=== PATIENT | female | born 2000 | race Caucasian/White ===

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

== ENCOUNTER 2022-07-26 15:21 | Outpatient (CLI) | payer BC, SELFPAY ==
[2022-07-26 16:27] LABS: Hemoglobin A1C 4.9 % (<5.7)
[2022-07-26 17:39] LABS: Free T4 Free Thyroxine 1.17 ng/mL (0.78-2.19)
== END 2022-07-26 15:22 | disposition home or self-care (01) ==
PROVIDERS: Visit Provider Obstetrics & Gynecology Gynecology
DX: Z13.29 Encounter for screening for other suspected endocrine disorder (principal); Z13.1 Encounter for screening for diabetes mellitus
CPT/HCPCS: 36415; 83036; 84439; 84443

== ENCOUNTER 2022-08-24 10:54 | Outpatient (CLI) | payer BC, SELFPAY ==
[2022-08-24 19:32] LABS: Hematocrit 40.2 % (37.0-47.0); Hemoglobin 13.4 g/dL (12.0-15.0); Mean Corpuscular HGB Conc 33.3 g/dl (32-36); Mean Corpuscular Hemoglobin 30.5 pg (26-34); Mean Corpuscular Volume 91.4 fl (80-100); Mean Platelet Volume 11.2 fl (7.4-10.4); Platelet Count Result 315 k/mm3 (150-375); Red Cell Distribution Width 12.9 % (11.5-14.5); White Blood Count 6.6 K/mm3 (4.5-10.0)
[2022-08-24 20:27] LABS: Vitamin D 25 Hydroxy 43.6 ng/mL
[2022-08-24 20:29] LABS: Alanine Aminotransferase 59 U/L (6-35); Albumin Level 4.3 g/dL (3.5-5.1); Alkaline Phosphatase 88 U/L (38-126); Anion Gap 4 mmol/L (8-16); Aspartate Amino Transferase 66 U/L (14-36); Bilirubin,Total 0.5 mg/dL (0.2-1.3); Blood Urea Nitrogen 10 mg/dL (7-17); Calcium 9.4 mg/dL (8.4-10.2); Carbon Dioxide 26 mmol/L (22-30); Chloride 105 mmol/L (98-107); Cholesterol 183 mg/dL (0-200); Estimated Glomerular Filt Rate > 60; Glucose 76 mg/dL (65-110); HDL Direct 47 mg/dL; Potassium 4.4 mmol/L (3.4-5.0); Sodium 135 mmol/L (137-145); Triglycerides 182 mg/dL (<150)
[2022-08-24 20:42] LABS: LDL Cholesterol Direct 95 mg/dL
== END 2022-08-24 10:55 | disposition home or self-care (01) ==
LOC: ANHGOSHLAB 10:55
PROVIDERS: Visit Provider Nurse Practitioner
DX: Z13.6 Encounter for screening for cardiovascular disorders (principal); N12 Tubulo-interstitial nephritis, not specified as acute or chronic; Z13.220 Encounter for screening for lipoid disorders; E55.9 Vitamin D deficiency, unspecified
CPT/HCPCS: 36415; 80053; 80061; 82306; 85027

== ENCOUNTER 2022-09-12 14:53 | Emergency (ER) | payer BC, SELFPAY ==
[2022-09-12 15:13] VITALS: BP 126/77; PULSE 81; RESP 16; TEMP 37.2; O2SAT 100
--- NOTE | 2022-09-12 15:17 | PC.NURSE ---
Spoke with provider regarding patient symptoms and Dr Rueda states no orders necessary for patient at this time.
--- NOTE | 2022-09-12 16:16 | PC.NURSE ---
Patient states she feels better and does not wish to be seen anymore. Patient ambulated out of ED with a steady gait. Patient states she is going to call her PCP. Patient advised to return to ED if symptoms worsen or return.
== END 2022-09-12 16:17 | disposition left against medical advice (07) ==
DX: R51.9 Headache, unspecified (principal)
CPT/HCPCS: 99199

== ENCOUNTER 2022-09-14 11:16 | Emergency (ER) | payer BC, SELFPAY ==
--- NOTE | ~2022-09-14 | CT_ITS ---
EXAMINATION: CT brain wo con INDICATION: Headache and blurred vision COMPARISON: None TECHNIQUE: Standard unenhanced head CT. The dose-length product (DLP) was 529.67 mGy-cm. The mA was a djusted according to patient size. Iterative reconstruction technique was employed. FINDINGS: There is no intracranial hemorrhage, acute infarction, or abnormal mass lesion. The ventric les are normal. There is no abnormal mass effect or midline shift. The hardin-white matter differentiat ion is normal. The basal cisterns are patent. The orbits are normal. The paranasal sinuses, mastoids and calvarium are normal. IMPRESSION: 1. No acute intracranial abnormality. Reviewed, dictated and finalized at location B.
[2022-09-14 11:23] VITALS: BP 118/70; PULSE 87; RESP 18; TEMP 36.7; O2SAT 100
--- NOTE | 2022-09-14 11:37 | ED.GENADULT ---
HPI - General Adult General Chief complaint: Unspecified Stated complaint: neuro complaints since monday, LWBS monday Time Seen by Provider: 09/14/22 11:27 History of Present Illness HPI narrative: Pt complains of tingling in arms, blurred vision and intermittent BLANTON's behind right eye for 3 days. Pt says the BLANTON's are precipitated by standing up quickly and the blurred vision is associated with the BLANTON's. Pt denies one sided weakness or photophobia. Pt has no BLANTON now. Pt says it may be anxiety and panic as her grandmother recently and the was 3 days ago ad the symptoms started afterward. Related Data Home Medications Medication Instructions Recorded Confirmed escitalopram oxalate 20 mg tablet 20 mg PO DAILY 08/24/22 08/24/22 (Lexapro) Allergies Allergy/AdvReac Type Severity Reaction Status Date / Time No Known Allergies Allergy Verified 08/24/22 10:16 Review of Systems Review of Systems: All systems reviewed & are unremarkable except as noted in HPI and below PMFSH Past Medical History Medical History False labor Pyelonephritis Surgical History Surgical History No pertinent past surgical history Family History Family History (Updated 08/24/22 @ 10:24 by RODERICK Townsend) Mother Hx of blood clots Hypertension Grandparent Pancreatic cancer Diabetes mellitus Grandparent Breast cancer Sibling Hypothyroid Other Diabetes mellitus Social History Social History Smoking status: Never smoker Second hand tobacco smoke exposure: Yes Additional smoking assessment comments: parents smoked in the home as a child/teen Alcohol intake: never Substance use: never Lack of Transportation: No Lack of Food: Never True Current Housing: I Have Housing Concerned About Future Housing: No Difficulty Paying Gas/Electric Bills: No Difficulty Paying for Meds: No Currently Unemployed: No Education: High School Diploma/GED Difficulty w/ Childcare or Family Care: No Living arrangements: with family Occupation/Education: other Additional occupation/education comments: HM Gender identity (if verbalized by the patient): Female Sexual Orientation (if Verbalized by the Patient): Straight or Heterosexual Spiritual care concerns: No Exam Const: General: cooperative, healthy appearing and no acute distress Orientation/consciousness: patient oriented x3 Limitations: no limitations HENMT: Head: normal to inspection Eyes: General: appearance normal, both eyes and all related structures Alignment and Position: alignment normal Conjunctivae: conjunctivae normal Sclera: sclerae normal Cornea: corneas normal Pupils: Equal, round and reactive pupils present EOM: EOMs intact bilaterally Neck: Neck: normal visual inspection and full ROM Chest: Chest palpation & inspection: normal inspection of the chest Resp: Effort & Inspection: normal respiratory effort Auscultation: clear to auscultation bilaterally Cardio: Rate: regular rate Rhythm: regular rhythm GI: Percussion: Yes normal to percussion Auscultation: normal bowel sounds Skin: General skin exam: normal color and no rashes or lesions noted Neuro: General: patient oriented x3 and moves all extremities Cranial nerves: Yes CN's II-XII intact bilaterally Cognition (Neuro): normal cognition Speech: normal speech Motor exam (neuro): 5/5 motor strength present throughout Sensory Exam: normal sensation Extrem: General: normal to inspection, full ROM and no clubbing, cyanosis or edema Psych: Appearance: grossly normal Speech and movement: Normal speech and movement present Affect: normal affect Attitude: cooperative Thought process: Normal thought process present Thought content: Yes Normal thought content present Course Vital Signs Vit
[2022-09-14 13:01] VITALS: RESP 16
== END 2022-09-14 13:02 | disposition home or self-care (01) ==
PROVIDERS: Emergency Provider Emergency Medicine; PCP Family Medicine
DX: G43.109 Migraine with aura, not intractable, without status migrainosus (principal); F41.9 Anxiety disorder, unspecified; Z77.22 Contact with and (suspected) exposure to environmental tobacco smoke (acute) (chronic)
CPT/HCPCS: 70450; 81025; 99284

== ENCOUNTER 2023-01-20 09:03 | Outpatient (CLI) | payer BC, SELFPAY ==
[2023-01-20 18:31] LABS: Alanine Aminotransferase 30 U/L (6-35); Albumin Level 4.5 g/dL (3.5-5.1); Alkaline Phosphatase 106 U/L (38-126); Anion Gap 6 mmol/L (8-16); Aspartate Amino Transferase 33 U/L (14-36); Bilirubin,Total 0.6 mg/dL (0.2-1.3); Blood Urea Nitrogen 11 mg/dL (7-17); Calcium 9.5 mg/dL (8.4-10.2); Carbon Dioxide 25 mmol/L (22-30); Chloride 103 mmol/L (98-107); Estimated Glomerular Filt Rate > 60; Glucose 86 mg/dL (65-110); Sodium 134 mmol/L (137-145)
[2023-01-20 18:51] LABS: Beta HCG Quantitative < 2.39 mIU/ML
[2023-01-24 11:04] LABS: DHEA-Sulfate 159 mcg/dL (51-321)
[2023-01-25 10:31] LABS: Testosterone Total 28 ng/dL (2-45)
[2023-01-26 05:43] LABS: Prolactin 9.9 ng/mL (***)
== END 2023-01-20 09:04 | disposition home or self-care (01) ==
LOC: ANHGOSHLAB 09:05
PROVIDERS: PCP Family Medicine; Referring Provider Obstetrics & Gynecology Gynecology; Visit Provider Family Medicine
DX: R63.5 Abnormal weight gain (principal); R74.8 Abnormal levels of other serum enzymes; N91.2 Amenorrhea, unspecified
CPT/HCPCS: 36415; 80053; 82627; 83036; 83498; 83525; 84144; 84146; 84403; 84443; 84702

== ENCOUNTER 2023-04-24 10:12 | Outpatient (CLI) | payer OTHER, SELFPAY ==
--- NOTE | ~2023-04-24 | US_ITS ---
Pelvic ultrasound. Clinical History: Pelvic pain, irregular menses Technique: Realtime transabdominal and transvaginal scanning of the pelvis was performed. Color flow Doppler and Doppler spectral analysis were performed. Findings: The uterus is retroverted. The endometrial stripe has a thickness of 4 mm. No focal myomet rial mass is identified. The right ovary measures 3.1 x 2.6 x 3.4 cm. No significant right ovarian or adnexal mass is seen. The left ovary measures 2.5 x 2.4 x 2.0 cm. No significant left ovarian or adnexal mass is seen. There is no evidence of free fluid in the cul de sac. Impression: No significant abnormality seen. Reviewed, dictated and finalized at [facility]. [employer] Impression: No significant abnormality seen.
== END 2023-04-24 10:13 ==
PROVIDERS: PCP Nurse Practitioner; Visit Provider Nurse Practitioner
DX: N93.8 Other specified abnormal uterine and vaginal bleeding (principal)
CPT/HCPCS: 76830; 76856

== ENCOUNTER 2023-05-09 11:00 | Outpatient (CLI) | payer OTHER, SELFPAY ==
[2023-05-09 11:52] LABS: Hematocrit 43.6 % (37.0-47.0); Mean Corpuscular HGB Conc 32.1 g/dl (32-36); Mean Corpuscular Volume 96.7 fl (80-100); Mean Platelet Volume 11.5 fl (7.4-10.4); Platelet Count Result 289 k/mm3 (150-375); Red Blood Count 4.51 M/mm3 (4.2-5.4); Red Cell Distribution Width 12.7 % (11.5-14.5); White Blood Count 6.5 K/mm3 (4.5-10.0)
[2023-05-09 14:07] LABS: Free T4 Free Thyroxine 1.13 ng/mL (0.78-2.19)
== END 2023-05-09 11:01 | disposition home or self-care (01) ==
PROVIDERS: PCP Nurse Practitioner; Visit Provider Nurse Practitioner
DX: N93.8 Other specified abnormal uterine and vaginal bleeding (principal)
CPT/HCPCS: 36415; 84439; 84443; 85027

== ENCOUNTER 2023-09-15 13:58 | Emergency (ER) | payer OTHER, SELFPAY ==
[2023-09-15 14:07] VITALS: BP 104/78; PULSE 89; RESP 16; TEMP 36.6; O2SAT 100
--- NOTE | 2023-09-15 14:07 | ED.GENADULT ---
HPI - General Adult General Chief complaint: Urogenital-Female Stated complaint: Uti Symptoms Source: patient, RN notes reviewed and old records reviewed Mode of arrival: ambulatory Limitations: no limitations History of Present Illness HPI narrative: 23-year-old female to [facility] complaint urinary urgency, hesitancy, retention, dysuria, and frequency for 2 days. Patient denies abdominal pain, nausea, vomiting, flank pain. Patient denies pertinent medical history. Related Data Home Medications Medication Instructions Recorded Confirmed escitalopram oxalate 20 mg tablet 20 mg PO DAILY 08/24/22 09/15/23 (Lexapro) Allergies Allergy/AdvReac Type Severity Reaction Status Date / Time No Known Allergies Allergy Verified 09/15/23 14:05 Review of Systems Review of Systems: All systems reviewed & are unremarkable except as noted in HPI and below Constitutional: Constitutional: Reports as per HPI, Denies body ache(s), Denies chills and Denies fever(s) Eyes: Eyes: Reports no additional eye complaints ENT: Reports system reviewed and no additional complaints, except as documented Cardiovascular: Cardiovascular: Reports no additional cardiovascular complaints, Denies chest pain and Denies dyspnea Respiratory: Respiratory: Reports no additional respiratory complaints, Denies cough and Denies dyspnea Gastrointestinal: Gastrointestinal: Denies abdominal pain Genitourinary: Genitourinary: Reports as per HPI, Reports urinary frequency, Reports nocturia, Reports dysuria, Denies pelvic pain, Denies flank pain, Reports urinary hesitancy and Reports urinary urgency Musculoskeletal: Musculoskeletal: Reports no additional musculoskeletal complaints Neurologic: Reports system reviewed and no additional complaints, except as documented Psychiatric: Psychiatric: Reports no additional psychiatric complaints [facility] Past Medical History Medical History False labor Pyelonephritis Surgical History Surgical History No pertinent past surgical history Family History Family History Mother Hx of blood clots Hypertension Grandparent Pancreatic cancer Diabetes mellitus Grandparent Breast cancer Sibling Hypothyroid Other Diabetes mellitus Social History Social History Smoking status: Never smoker Second hand tobacco smoke exposure: Yes Additional smoking assessment comments: parents smoked in the home as a child/teen Alcohol intake: never Substance use: never Lack of Transportation: No Lack of Food: Never True Current Housing: I Have Housing Concerned About Future Housing: No Difficulty Paying Gas/Electric Bills: No Difficulty Paying for Meds: No Currently Unemployed: No Education: High School Diploma/GED Difficulty w/ Childcare or Family Care: No Living arrangements: with family Occupation/Education: other Additional occupation/education comments: HM Gender identity (if verbalized by the patient): Female Sexual Orientation (if Verbalized by the Patient): Straight or Heterosexual Spiritual care concerns: No Comments At the time of my signature, I reviewed and agree with the nursing past medical, surgical, social, and family history. There is no relevant family history pertinent to the patient complaint. Exam Const: General: cooperative, healthy appearing, no acute distress, alert, tired appearing, uncomfortable and well nourished Nutritional Appearance: well nourished Orientation/consciousness: patient oriented x3 Limitations: no limitations HENMT: Head: normal to inspection Ears: external ears normal Face/Nose/Sinus: Normal external nose present, Normal nares present, normal facial exam, No erythema and No edema Face and sinu
== END 2023-09-15 14:28 | disposition home or self-care (01) ==
PROVIDERS: Emergency Provider Nurse Practitioner Family; PCP Family Medicine
DX: N39.0 Urinary tract infection, site not specified (principal); B96.89 Other specified bacterial agents as the cause of diseases classified elsewhere
CPT/HCPCS: 81003; 87077; 87086; 87186; 99213; G0463

== ENCOUNTER 2023-10-24 14:29 | Outpatient (CLI) | payer OTHER, SELFPAY ==
[2023-10-24 19:33] LABS: Appearance Urine Clear (Clear); Bilirubin Urine Negative (Negative); Blood Urine Negative (Negative); Color Urine Yellow (Yellow); Glucose Urine UA Negative (Negative); Ketones Urine Negative (Negative); Leukocyte Esterase Ur Negative LEU/UL (Negative); Nitrate Urine Negative (Negative); Protein Urine Negative (Negative); Urobilinogen Urine 0.2 mg/dL (<2.0); pH Urine 5.5 (5.0-9.0)
[2023-10-24 19:39] LABS: Add Urine Microscopic? NO
== END 2023-10-24 14:30 | disposition home or self-care (01) ==
LOC: ANHGOSHLAB 14:30
PROVIDERS: PCP Family Medicine; Visit Provider Nurse Practitioner
DX: R30.0 Dysuria (principal)
CPT/HCPCS: 81003

== ENCOUNTER 2024-02-27 10:57 | Outpatient (CLI) | payer OTHER, SELFPAY ==
--- NOTE | ~2024-02-27 | XR_ITS ---
XR abdomen/kub 1V Ordering provider: MALLIKA Templeton History: . R19.7 - Diarrhea . Comparison: None. FINDINGS: BOWEL: Nonobstructive bowel gas pattern. ORGANOMEGALY: None. SIGNIFICANT PATHOLOGIC CALCIFICATIONS: None. OTHER: No free air is seen under the diaphragm. IMPRESSION: NO ACUTE ABDOMINAL FINDINGS. Reviewed, dictated and finalized at location A.
[2024-02-27 11:44] LABS: Hematocrit 41.4 % (37.0-47.0); Hemoglobin 13.5 g/dL (12.0-15.0); Mean Corpuscular HGB Conc 32.6 g/dl (32-36); Mean Corpuscular Hemoglobin 31.3 pg (26-34); Mean Corpuscular Volume 95.8 fl (80-100); Mean Platelet Volume 10.9 fl (7.4-10.4); Platelet Count Result 287 k/mm3 (150-375); Red Blood Count 4.32 M/mm3 (4.2-5.4); Red Cell Distribution Width 12.6 % (11.5-14.5); White Blood Count 8.6 K/mm3 (4.5-10.0)
[2024-02-27 12:07] LABS: Alanine Aminotransferase 21 U/L (6-35); Albumin Level 4.5 g/dL (3.5-5.1); Alkaline Phosphatase 76 U/L (38-126); Anion Gap 10 mmol/L (4-12); Aspartate Amino Transferase 28 U/L (14-36); Bilirubin,Total 0.5 mg/dL (0.2-1.3); Blood Urea Nitrogen 10 mg/dL (7-17); Calcium 9.2 mg/dL (8.4-10.2); Carbon Dioxide 26 mmol/L (22-30); Chloride 101 mmol/L (98-107); Estimated Glomerular Filt Rate > 60; Glucose 82 mg/dL (65-110); Potassium 4.2 mmol/L (3.4-5.0); Sodium 137 mmol/L (137-145)
[2024-02-27 12:31] LABS: Thyroid Stimulating Hormone 0.626 uIU/mL (0.465-4.680)
[2024-03-02 07:09] LABS: Immunoglobulin A 185 mg/dL (47-310); TTG IGA AB <1.0 U/mL
== END 2024-02-27 10:58 | disposition home or self-care (01) ==
PROVIDERS: PCP Family Medicine; Visit Provider Nurse Practitioner Family
DX: R19.7 Diarrhea, unspecified (principal); R10.9 Unspecified abdominal pain
CPT/HCPCS: 36415; 74018; 80053; 82784; 84443; 85027; 86364

== ENCOUNTER 2024-03-08 13:16 | Emergency (ER) | payer OTHER, SELFPAY ==
[2024-03-08 13:19] VITALS: BP 133/79; PULSE 98; RESP 16; TEMP 36.4; O2SAT 100
--- NOTE | 2024-03-08 15:36 | PC.NURSE ---
Pt states she feels better and is going home. States will return if symptoms worsen. Pt exits ED in NAD
== END 2024-03-08 15:56 | disposition left against medical advice (07) ==
PROVIDERS: PCP Family Medicine
DX: Z53.21 Procedure and treatment not carried out due to patient leaving prior to being seen by health care provider (principal)
CPT/HCPCS: 99199

== ENCOUNTER 2024-03-19 06:32 | Emergency (ER) | payer OTHER, SELFPAY ==
--- NOTE | ~2024-03-19 | CT_ITS ---
Non-contrast CT scan of the Abdomen and Pelvis Clinical indication: Right flank pain Technique: 2.5 mm axial scans were obtained through the abdomen and pelvis without intravenous or or al contrast. Dose reduction technique was used on this scan by utilizing automated exposure control a nd iterative reconstruction technique. The dose-length product (DLP) was 416.33 mGy-cm. COMPARISON: 09/13/2021 Findings: Images through the lung bases reveal no abnormalities. There is a 2-3 mm stone at the proximal right ureter (axial image 99), with questionable minimal full ness the right renal collecting system. Additional punctate nonobstructing right renal stone. Noted 4 mm nonobstructing left renal stone. No left ureteral stone or left hydronephrosis. The liver, spleen, pancreas, gallbladder, and adrenals appear normal. There is no aortic aneurysm. There is no evidence of bowel obstruction. Small fat-containing umbilical hernia noted. Normal append ix. Images through the pelvis were performed. There is no evidence of ascites or lymphadenopathy. Urinary bladder unremarkable. No pelvic mass seen. Impression: 2-3 mm proximal right ureteral stone with questionable minimal fullness right renal collecting system . Additional small bilateral nonobstructing renal stones, as above. Reviewed, dictated and finalized at location . Impression: 2-3 mm proximal right ureteral stone with questionable minimal fullness right r enal collecting system. Additional small bilateral nonobstructing renal stones, as above.
[2024-03-19 06:16] VITALS: BP 152/90; PULSE 88; RESP 15; O2SAT 100
[2024-03-19 06:31] LABS: BEDSIDEPREGUCG Negative (Negative)
[2024-03-19 06:40] LABS: Basophils Absolute Auto 0.1 K/mm3 (0.0-0.1); Basophils Percent Auto 0.8 % (0.2-1.2); Eosinophils Absolute Auto 0.2 K/mm3 (0-0.3); Eosinophils Percent Auto 2.5 % (0-4.4); Hematocrit 42.4 % (37.0-47.0); Hemoglobin 14.3 g/dL (12.0-15.0); Immature Granulocyte Absolute 0.04 K/mm3 (0.00-0.031); Immature Granulocyte Percent A 0.5 % (0-0.5); Lymphocytes Absolute Auto 3.07 K/mm3 (0.9-3.2); Lymphocytes Percent Auto 36.6 % (18.3-44.2); Mean Corpuscular HGB Conc 33.7 g/dl (32-36); Mean Corpuscular Hemoglobin 32.1 pg (26-34); Mean Corpuscular Volume 95.1 fl (80-100); Monocytes Absolute Auto 0.6 K/mm3 (0.1-0.6); Monocytes Percent Auto 7.6 % (2.6-8.5); Neutrophils Absolute Auto 4.4 K/mm3 (1.3-6.7); Platelet Count Result 304 k/mm3 (150-375); Red Blood Count 4.46 M/mm3 (4.2-5.4); Red Cell Distribution Width 12.6 % (11.5-14.5); White Blood Count 8.4 K/mm3 (4.5-10.0)
[2024-03-19 06:46] LABS: Add Urine Microscopic? YES; Appearance Urine Cloudy (Clear); Bacteria Urine 1+ /hpf; Bilirubin Urine Negative (Negative); Blood Urine 3+ (Negative); Color Urine Yellow (Yellow); Glucose Urine UA Negative (Negative); Ketones Urine Negative (Negative); Leukocyte Esterase Ur Negative LEU/UL (Negative); Nitrate Urine Negative (Negative); Non Pathogenic Casts 0-2; Protein Urine Negative (Negative); RBC Urine >100 /hpf (0-2); Specific Grav Ur 1.027 (1.001-1.035); Squamous Epithelial Cell Urine Occasional /hpf (Few); Urobilinogen Urine 0.2 mg/dL (<2.0); WBC Urine 0-5 /hpf (0-3)
[2024-03-19 06:49] LABS: Alanine Aminotransferase 20 U/L (6-35); Albumin Level 4.5 g/dL (3.5-5.1); Alkaline Phosphatase 85 U/L (38-126); Anion Gap 8 mmol/L (4-12); Aspartate Amino Transferase 25 U/L (14-36); Bilirubin,Total 0.5 mg/dL (0.2-1.3); Blood Urea Nitrogen 9 mg/dL (7-17); Calcium 9.5 mg/dL (8.4-10.2); Carbon Dioxide 25 mmol/L (22-30); Chloride 104 mmol/L (98-107); Estimated CRCL calculation 149 ml/min; Estimated Glomerular Filt Rate > 60; Glucose 101 mg/dL (65-110); Lipase 41 U/L (23-300); Potassium 3.9 mmol/L (3.4-5.0); Sodium 137 mmol/L (137-145)
[2024-03-19 07:30] VITALS: BP 119/72; PULSE 77; RESP 18; O2SAT 99
[2024-03-19] MEDS: SODIUM CHLORIDE 0.9% IV 500 ML 999 ML IV CONT (07:34)
[2024-03-19] MEDS: ONDANSETRON INJ 4 MG/2 ML VIAL IV PUSH (07:34)
[2024-03-19] MEDS: HYDROmorphone HCL INJ (*CRX) 1 MG/ML SYR 0.5 MG IV PUSH (07:34)
--- NOTE | 2024-03-19 08:02 | ED.ABDPAIN ---
HPI - Abdominal Pain General Chief Complaint: Abdominal Pain Stated Complaint: right flank pain Time Seen by Provider: 03/19/24 07:17 History of Present Illness HPI narrative: Pt presents with right flank pain this morning. Pt has a history of kidney stones and his feels similar. Pt has been able to pass them on her own and has not followed up with urology. Pt denies dysuria or frequency or fever or chills. Pt has some nausea with pain. Pt says pain waxes and wanes and radiates to right groin. Related Data Home Medications Medication Instructions Recorded Confirmed escitalopram oxalate 20 mg tablet 20 mg PO DAILY 08/24/22 03/05/24 (Lexapro) Allergies Allergy/AdvReac Type Severity Reaction Status Date / Time No Known Allergies Allergy Verified 03/05/24 11:40 Review of Systems Review of Systems: All systems reviewed & are unremarkable except as noted in HPI and below PMFSH Past Medical History Medical History Abdominal pain False labor Pyelonephritis Surgical History Surgical History No pertinent past surgical history Family History Family History Mother Hx of blood clots Hypertension Grandparent Pancreatic cancer Diabetes mellitus Grandparent Breast cancer Sibling Hypothyroid Other Diabetes mellitus Social History Social History Smoking status: Never smoker Second hand tobacco smoke exposure: Yes Additional smoking assessment comments: parents smoked in the home as a child/teen Alcohol intake: never Substance use: never Lack of Transportation: No Lack of Food: Never True Current Housing: I Have Housing Concerned About Future Housing: No Difficulty Paying Gas/Electric Bills: No Difficulty Paying for Meds: No Currently Unemployed: No Education: High School Diploma/GED Difficulty w/ Childcare or Family Care: No Living arrangements: with family Occupation/Education: other Additional occupation/education comments: HM Gender identity (if verbalized by the patient): Female Sexual Orientation (if Verbalized by the Patient): Straight or Heterosexual Spiritual care concerns: No Exam Const: General: healthy appearing and no acute distress Nutritional Appearance: well nourished Orientation/consciousness: patient oriented x3 Resp: Effort & Inspection: normal respiratory effort Auscultation: clear to auscultation bilaterally Cardio: Rate: regular rate Rhythm: regular rhythm GI: GI Palp: Yes Soft to palpation and No Tenderness to palpation present (GI) Auscultation: normal bowel sounds : General: Yes bladder normal to palpation Back/Spine/Pelvis: Back: CVA tenderness (right) Skin: General skin exam: normal color Rashes: no rashes Wounds: no wounds Neuro: General: patient oriented x3, moves all extremities, no meningeal signs and no focal motor deficits Cranial nerves: Yes Nystagmus not present Speech: normal speech Extrem: General: normal to inspection and no clubbing, cyanosis or edema Psych: Mental Status: mental status grossly normal Affect: normal affect Attitude: cooperative Course Vital Signs Vital signs: Vital Signs Pulse Rate 88 03/19/24 06:16 Respiratory Rate 15 03/19/24 06:16 Blood Pressure 152/90 H 03/19/24 06:16 Pulse Oximetry 100 03/19/24 06:16 Oxygen Delivery Room Air 03/19/24 06:16 Temperature 97.7 F 03/19/24 08:16 Pulse Rate 85 03/19/24 08:16 Respiratory Rate 16 03/19/24 08:16 Blood Pressure 107/69 03/19/24 08:16 Pulse Oximetry 99 03/19/24 08:16 Oxygen Delivery Room Air 03/19/24 06:16 MDM - Abdominal Pain MDM Narrative Medical decision making narrative: Pt presents with right flank pain radiating to right groin. pt has hx of kidney stones and this
[2024-03-19 08:16] VITALS: BP 107/69; PULSE 85; RESP 16; TEMP 36.5; O2SAT 99
== END 2024-03-19 08:20 | disposition home or self-care (01) ==
PROVIDERS: Emergency Medicine; Emergency Provider Emergency Medicine; PCP Family Medicine
DX: N20.0 Calculus of kidney (principal)
CPT/HCPCS: 36415; 74176; 80053; 81001; 81025; 83690; 85025; 96361; 96374; 96375; 99284; J1171; J2405; J7040

== ENCOUNTER 2024-03-20 06:09 | Emergency (ER) | payer OTHER, SELFPAY ==
[2024-03-20] VITALS (8 sets, daily range): BP systolic 112–134; BP diastolic 74–86; PULSE 68–94; RESP 12–23; TEMP 36.4–36.7; O2SAT 95–100
--- NOTE | ~2024-03-20 | XR_ITS ---
EXAMINATION: XR abdomen/kub 1V DATE: 03/20/2024 08:33 INDICATION: Right ureteral stone. TECHNIQUE: A supine view of the abdomen on 2 radiographs was obtained. COMPARISON: CT abdomen and pelvis 03/19/2024 FINDINGS: There are no dilated loops of bowel. There is no visible urolithiasis. IMPRESSION: 1. No visible urolithiasis. Reviewed, dictated and finalized at location A. IMPRESSION: 1. No visible urolithiasis.
--- NOTE | 2024-03-20 06:23 | ED.GENADULT ---
HPI - General Adult General Chief complaint: Urogenital-Female <Curry Canales MD - Last Filed: 03/20/24 19:41> Stated complaint: abd pain <uCrry Canales MD - Last Filed: 03/20/24 19:41> Time Seen by Provider: 03/20/24 06:17 <Curry Canales MD - Last Filed: 03/20/24 19:41> History of Present Illness HPI narrative: 24-year-old female history of kidney stones presents emergency department for evaluation for persistent kidney stone pain. Patient was evaluated emergency department yesterday and diagnosed with a 2-3 mm proximal right ureteral stone with questionable minimal fullness right renal collecting system. Patient was feeling better after treatment in the emergency department but began having worsening pain after getting home. Patient states she has been having nausea and vomiting. Upon arrival emergency department patient does appear to be uncomfortable. Patient states so she has had previous kidney stones that she has not had any previous lithotripsies or urinary procedures. <Curry Canales MD - Last Filed: 03/20/24 19:41> Related Data Home medications: Home Medications Medication Instructions Recorded Confirmed escitalopram oxalate 20 mg tablet 20 mg PO DAILY 08/24/22 03/05/24 (Lexapro) <Curry Canales MD - Last Filed: 03/20/24 19:41> Allergies/adverse reactions: Allergies Allergy/AdvReac Type Severity Reaction Status Date / Time No Known Allergies Allergy Verified 03/05/24 11:40 <Curry Canales MD - Last Filed: 03/20/24 19:41> Review of Systems Review of Systems: All systems reviewed & are unremarkable except as noted in HPI and below <Curry Canales MD - Last Filed: 03/20/24 19:41> [facility] Past Medical History Medical History: Medical History Abdominal pain False labor Pyelonephritis <Curry Canales MD - Last Filed: 03/20/24 19:41> Surgical History Surgical History: Surgical History No pertinent past surgical history <Curry Canales MD - Last Filed: 03/20/24 19:41> Family History Family History: Family History Mother Hx of blood clots Hypertension Grandparent Pancreatic cancer Diabetes mellitus Grandparent Breast cancer Sibling Hypothyroid Other Diabetes mellitus <Curry Canales MD - Last Filed: 03/20/24 19:41> Social History Social History: Social History Smoking status: Never smoker Second hand tobacco smoke exposure: Yes Additional smoking assessment comments: parents smoked in the home as a child/teen Alcohol intake: never Substance use: never Lack of Transportation: No Lack of Food: Never True Current Housing: I Have Housing Concerned About Future Housing: No Difficulty Paying Gas/Electric Bills: No Difficulty Paying for Meds: No Currently Unemployed: No Education: High School Diploma/GED Difficulty w/ Childcare or Family Care: No Living arrangements: with family Occupation/Education: other Additional occupation/education comments: HM Gender identity (if verbalized by the patient): Female Sexual Orientation (if Verbalized by the Patient): Straight or Heterosexual Spiritual care concerns: No <Curry Canales MD - Last Filed: 03/20/24 19:41> Exam Narrative: APPEARANCE: Uncomfortable appearing HEAD: normocephalic, atraumatic. EYES: PERRLA/EOMI, conjunctivae clear. NOSE: Normal no drainage EARS:TMS clear with good light reflex. THROAT: Pharynx clear, no exudate. NECK: Supple. No adenopathy, no masses. RESPIRATORY: Airway patent, respirations nonlabored. Clear to auscultation bilaterally, no rales, rhonchi, wheezing. CARDIOVASCULAR: Regular rate and rhythm without murmurs rubs or gallops. ABDOMINAL: Right flank tenderness,
[2024-03-20 06:35] LABS: Basophils Absolute Auto 0.1 K/mm3 (0.0-0.1); Basophils Percent Auto 0.6 % (0.2-1.2); Eosinophils Absolute Auto 0.2 K/mm3 (0-0.3); Eosinophils Percent Auto 1.8 % (0-4.4); Hematocrit 37.9 % (37.0-47.0); Hemoglobin 12.8 g/dL (12.0-15.0); Immature Granulocyte Absolute 0.03 K/mm3 (0.00-0.031); Immature Granulocyte Percent A 0.4 % (0-0.5); Immature Platelet Fraction Pct 8.4 % (0.9-11.2); Lymphocytes Percent Auto 35.1 % (18.3-44.2); Mean Corpuscular HGB Conc 33.8 g/dl (32-36); Mean Corpuscular Hemoglobin 32.2 pg (26-34); Mean Corpuscular Volume 95.2 fl (80-100); Mean Platelet Volume 11.5 fl (7.4-10.4); Monocytes Absolute Auto 0.4 K/mm3 (0.1-0.6); Monocytes Percent Auto 5.1 % (2.6-8.5); Neutrophils Absolute Auto 4.7 K/mm3 (1.3-6.7); Platelet Count Result 231 k/mm3 (150-375); Red Blood Count 3.98 M/mm3 (4.2-5.4); Red Cell Distribution Width 12.6 % (11.5-14.5); White Blood Count 8.3 K/mm3 (4.5-10.0)
[2024-03-20] MEDS: ONDANSETRON INJ 4 MG/2 ML VIAL IV PUSH (06:36)
[2024-03-20] MEDS: SODIUM CHLORIDE 0.9% IV 1,000 ML 999 ML IV CONT (06:38)
[2024-03-20] MEDS: HYDROmorphone HCL INJ (*CRX) 1 MG/ML SYR IV PUSH (06:38)
[2024-03-20 06:43] LABS: Alanine Aminotransferase 17 U/L (6-35); Albumin Level 4.2 g/dL (3.5-5.1); Alkaline Phosphatase 67 U/L (38-126); Anion Gap 9 mmol/L (4-12); Aspartate Amino Transferase 24 U/L (14-36); Bilirubin,Total 0.6 mg/dL (0.2-1.3); Blood Urea Nitrogen 9 mg/dL (7-17); Calcium 8.8 mg/dL (8.4-10.2); Carbon Dioxide 26 mmol/L (22-30); Chloride 102 mmol/L (98-107); Estimated CRCL calculation 127 ml/min; Estimated Glomerular Filt Rate > 60; Glucose 108 mg/dL (65-110); Potassium 3.5 mmol/L (3.4-5.0); Sodium 137 mmol/L (137-145)
[2024-03-20 06:54] LABS: Large Platelets Present; Platelet Estimate Adequate (Adequate)
[2024-03-20 06:55] LABS: Schistocytes None Seen
[2024-03-20] MEDS: MORPHINE SULFATE (*CRX) 4 MG/ML INJ IV PUSH (08:21)
[2024-03-20 08:59] LABS: Add Urine Microscopic? YES; Appearance Urine Clear (Clear); Bacteria Urine 2+ /hpf; Bilirubin Urine Negative (Negative); Blood Urine 3+ (Negative); Color Urine Yellow (Yellow); Glucose Urine UA Negative (Negative); Ketones Urine Trace mg/dL (Negative); Leukocyte Esterase Ur 1+ LEU/UL (Negative); Nitrate Urine Negative (Negative); Protein Urine Negative (Negative); RBC Urine 51-100 /hpf (0-2); Squamous Epithelial Cell Urine Occasional /hpf (Few); Urobilinogen Urine 0.2 mg/dL (<2.0); pH Urine 5.5 (5.0-9.0)
[2024-03-20] MEDS: KETOROLAC 30 MG/ML VIAL (*BKC) IV PUSH (10:13)
== END 2024-03-20 11:29 | disposition home or self-care (01) ==
PROVIDERS: Emergency Provider Emergency Medicine; PCP Family Medicine
DX: N23 Unspecified renal colic (principal); Z77.22 Contact with and (suspected) exposure to environmental tobacco smoke (acute) (chronic); Z87.442 Personal history of urinary calculi; Z79.899 Other long term (current) drug therapy
CPT/HCPCS: 36415; 74018; 80053; 81001; 85025; 85055; 87086; 96361; 96374; 96375; 99284; J1171; J1885; J2270; J2405; J7030

== ENCOUNTER 2024-03-21 11:57 | Day surgery (SDC) | payer OTHER, SELFPAY ==
[2024-03-21] VITALS (10 sets, daily range): BP systolic 114–137; BP diastolic 68–87; PULSE 60–77; RESP 16–20; TEMP 36.4–37.1; O2SAT 96–100
--- NOTE | ~2024-03-21 | XR_ITS ---
INTRAOPERATIVE FLUOROSCOPY: CLINICAL HISTORY: 24 years old Female; RT RETRO PROCEDURE COMMENTS: Limited intraoperative fluoroscopy of the right flank was performed. CUMULATIVE DOSE: 3.42 mGy FLUOROSCOPY TIME: 9.3 seconds FINDINGS/IMPRESSION: Intraoperative fluoroscopic views demonstrate a prior along the expected course of the right ureter. Please refer to operative note for further details. Reviewed, dictated and finalized at location A.
--- NOTE | ~2024-03-21 | CT_ITS ---
EXAMINATION: CT abdomen pelvis wo con DATE: 03/21/2024 12:36 INDICATION: Right flank pain. TECHNIQUE: Computed tomography (CT) of the abdomen and pelvis was performed without intravenous contr ast. Automated exposure control and iterative reconstruction technique were employed. The dose-length product was 566.35 mGy-cm. COMPARISON: CT abdomen and pelvis 03/19/2024 FINDINGS: The visualized portions of the lung bases demonstrate mild atelectasis. No pleural effusion . The heart size is normal. No pericardial effusion. There is diffuse hepatic steatosis. The gallblad alea, spleen, pancreas, and adrenal glands are normal. There is a 1 mm stone in right kidney. There is mild right hydronephrosis and hydroureter. There is a 2 mm stone at right ureterovesicular junction. There is a 4 mm stone in left kidney. There are no dilated loops of bowel. The appendix is normal. T here are no pathologically enlarged lymph nodes. There is no free intraperitoneal fluid. The bones ar e unremarkable. IMPRESSION: 1. 2 mm stone at right ureterovesicular junction with mild right hydronephrosis and hydroureter. 2. Bilateral nonobstructing kidney stones. 3. Diffuse hepatic steatosis. Reviewed, dictated and finalized at location A.
--- NOTE | 2024-03-21 12:11 | ED.BACK ---
HPI - Back Pain/Injury General Chief Complaint: Urogenital-Female Stated Complaint: right flank pain (diag w/ kidney stone) Time Seen by Provider: 03/21/24 12:02 History of Present Illness HPI Narrative: Patient who has been here every day for the last 3 days for right-sided kidney stone presents here with severe right flank pain and nausea vomiting, had been seen here yesterday with normal x-ray and was discharge with pain medicine however pain started again this morning at 4. Related Data Home Medications Medication Instructions Recorded Confirmed escitalopram oxalate 20 mg tablet 20 mg PO DAILY 08/24/22 03/05/24 (Lexapro) Allergies Allergy/AdvReac Type Severity Reaction Status Date / Time No Known Allergies Allergy Verified 03/05/24 11:40 Review of Systems Review of Systems: All systems reviewed & are unremarkable except as noted in HPI and below PMFSH Past Medical History Medical History Abdominal pain False labor Pyelonephritis Surgical History Surgical History No pertinent past surgical history Family History Family History Mother Hx of blood clots Hypertension Grandparent Pancreatic cancer Diabetes mellitus Grandparent Breast cancer Sibling Hypothyroid Other Diabetes mellitus Social History Social History Smoking status: Never smoker Second hand tobacco smoke exposure: Yes Additional smoking assessment comments: parents smoked in the home as a child/teen Alcohol intake: never Substance use: never Lack of Transportation: No Lack of Food: Never True Current Housing: I Have Housing Concerned About Future Housing: No Difficulty Paying Gas/Electric Bills: No Difficulty Paying for Meds: No Currently Unemployed: No Education: High School Diploma/GED Difficulty w/ Childcare or Family Care: No Living arrangements: with family Occupation/Education: other Additional occupation/education comments: HM Gender identity (if verbalized by the patient): Female Sexual Orientation (if Verbalized by the Patient): Straight or Heterosexual Spiritual care concerns: No Exam Narrative: EXAMINATION OF ORGAN SYSTEMS/BODY AREAS: Constitutional: Vital signs per nursing GENERAL: Appears quite uncomfortable, shaking HEAD: Normal with no signs of head trauma. EYES: EOMI, conjunctiva normal ENT: Hearing grossly intact LUNGS: Nonlabored breathing. HEART: [Regular rate and rhythm] ABD: [Soft], [nontender to palpation], slight right CVA tenderness EXT: Normal range of motion SKIN: [No rashes or lesions.] NEURO: [Alert and oriented x 3. No gross focal sensory or strength deficits.] PSYCH: Normal affect Course Vital Signs Vital signs: Vital Signs Temperature 97.9 F 03/21/24 12:04 Pulse Rate 77 03/21/24 12:04 Respiratory Rate 20 03/21/24 12:04 Blood Pressure 132/87 03/21/24 12:04 Pulse Oximetry 99 03/21/24 12:04 Oxygen Delivery Room Air 03/21/24 12:04 Temperature 97.9 F 03/21/24 12:04 Pulse Rate 69 03/21/24 13:21 Respiratory Rate 18 03/21/24 13:21 Blood Pressure 127/71 03/21/24 13:21 Pulse Oximetry 98 03/21/24 13:21 Oxygen Delivery Room Air 03/21/24 12:04 MDM - Back Pain/Injury MDM Narrative Medical decision making narrative: ED COURSE AND MEDICAL DECISION MAKIN-year-old female presenting to the emergency department for acute flank pain, symptoms are concerning for likely renal colic versus pyelonephritis. Urinalysis is ordered. [Toradol 15mg, Zofran 4mg] are ordered. I discussed with patient and mother at bedside that I am concerned she has had multiple CTs however since she had a negative x-ray yesterday with me a scan today to further that she had this done, patient states she con
[2024-03-21] MEDS: KETOROLAC 15 MG/ML VIAL (*BKC) IV PUSH (12:18)
[2024-03-21] MEDS: ONDANSETRON INJ 4 MG/2 ML VIAL IV PUSH (12:19)
[2024-03-21 12:25] LABS: BEDSIDEPREGUCG Negative (Negative)
[2024-03-21 12:25] LABS: Basophils Percent Auto 0.4 % (0.2-1.2); Eosinophils Absolute Auto 0.1 K/mm3 (0-0.3); Eosinophils Percent Auto 0.7 % (0-4.4); Hematocrit 38.3 % (37.0-47.0); Hemoglobin 13.1 g/dL (12.0-15.0); Immature Granulocyte Absolute 0.04 K/mm3 (0.00-0.031); Immature Granulocyte Percent A 0.4 % (0-0.5); Lymphocytes Absolute Auto 2.03 K/mm3 (0.9-3.2); Lymphocytes Percent Auto 20.2 % (18.3-44.2); Mean Corpuscular HGB Conc 34.2 g/dl (32-36); Mean Corpuscular Volume 93.6 fl (80-100); Mean Platelet Volume 10.6 fl (7.4-10.4); Monocytes Absolute Auto 0.7 K/mm3 (0.1-0.6); Monocytes Percent Auto 7.1 % (2.6-8.5); Neutrophils Absolute Auto 7.2 K/mm3 (1.3-6.7); Neutrophils Percent Auto 71.2 % (45.5-73.1); Platelet Count Result 275 k/mm3 (150-375); Red Blood Count 4.09 M/mm3 (4.2-5.4); Red Cell Distribution Width 12.6 % (11.5-14.5); White Blood Count 10.1 K/mm3 (4.5-10.0)
[2024-03-21 12:34] LABS: Alanine Aminotransferase 17 U/L (6-35); Albumin Level 4.3 g/dL (3.5-5.1); Alkaline Phosphatase 80 U/L (38-126); Anion Gap 8 mmol/L (4-12); Aspartate Amino Transferase 21 U/L (14-36); Bilirubin,Total 0.8 mg/dL (0.2-1.3); Blood Urea Nitrogen 11 mg/dL (7-17); Calcium 9.3 mg/dL (8.4-10.2); Carbon Dioxide 25 mmol/L (22-30); Chloride 103 mmol/L (98-107); Estimated CRCL calculation 91 ml/min; Estimated Glomerular Filt Rate > 60; Glucose 87 mg/dL (65-110); Potassium 3.8 mmol/L (3.4-5.0); Sodium 136 mmol/L (137-145)
[2024-03-21 12:35] LABS: Add Urine Microscopic? YES; Appearance Urine Clear (Clear); Bacteria Urine Rare /hpf; Bilirubin Urine Negative (Negative); Blood Urine Negative (Negative); Color Urine Yellow (Yellow); Glucose Urine UA Negative (Negative); Ketones Urine 1+ mg/dL (Negative); Leukocyte Esterase Ur 1+ LEU/UL (Negative); Nitrate Urine Negative (Negative); Non Pathogenic Casts 0-2; Protein Urine Negative (Negative); RBC Urine 0-2 /hpf (0-2); Specific Grav Ur 1.022 (1.001-1.035); Squamous Epithelial Cell Urine Occasional /hpf (Few); Urobilinogen Urine 0.2 mg/dL (<2.0); pH Urine 5.5 (5.0-9.0)
--- NOTE | 2024-03-21 13:09 | PC.NURSE ---
Pt c/o increased pain. made aware. Dr. Jabari DOUGLASS to administer 4mg IVP morphine stat.
[2024-03-21] MEDS: MORPHINE SULFATE (*CRX) 4 MG/ML INJ IV PUSH (13:19)
[2024-03-21] MEDS: cefTRIAXone 2 GM/NS 100 ML 2 GM/100 ML BAG IVPB (13:19)
--- NOTE | 2024-03-21 14:27 | PC.NURSE ---
Yris from [facility] called for report. Report given.
[2024-03-21] MEDS: MORPHINE SULFATE (*CRX) 2 MG/ML INJ IV PUSH (14:38)
--- NOTE | 2024-03-21 14:45 | PM.HPGS ---
History of Present Illness History of Present Illness Consent: Risks, benefits, and alternatives have been discussed and questions answered. Patient agrees to proceed with procedure. Chief complaint: right flank pain (diag w/ kidney stone) Narrative: Lissette Duenas is a 24 year old female Who reports having spontaneously passed ureteral calculi on 3 occasions in the past. She now has a 2 mm stone is prompted ER visit is 1 each of the last 3 days. First the stone was seen in her proximal right ureter on CT imaging. Yesterday a KUB did medicinal plant picker the stones she was again discharged. Today a repeat CT shows the stone has migrated to her right UVJ. Additionally, she has an asymptomatic nonobstructing 4 mm left renal calculus which she said this has been present for an extended period of time. She has had no fevers chills gross hematuria but does report irritable voiding. Review of Systems Cardiovascular: Cardiovascular: Denies chest pain, Denies lightheadedness, Denies palpitations and Denies dyspnea Respiratory: Respiratory: Denies dyspnea Gastrointestinal: Gastrointestinal: Denies diarrhea, Denies nausea and Denies vomiting Genitourinary: Genitourinary: Denies hematuria and Denies dysuria Endocrine: Endocrine: Denies palpitations PMFSH Past Medical History Medical History Abdominal pain False labor Pyelonephritis Surgical History Surgical History No pertinent past surgical history Family History Family History Mother Hx of blood clots Hypertension Grandparent Pancreatic cancer Diabetes mellitus Grandparent Breast cancer Sibling Hypothyroid Other Diabetes mellitus Social History Social History Smoking status: Never smoker Second hand tobacco smoke exposure: Yes Additional smoking assessment comments: parents smoked in the home as a child/teen Alcohol intake: never Substance use: never Lack of Transportation: No Lack of Food: Never True Current Housing: I Have Housing Concerned About Future Housing: No Difficulty Paying Gas/Electric Bills: No Difficulty Paying for Meds: No Currently Unemployed: No Education: High School Diploma/GED Difficulty w/ Childcare or Family Care: No Living arrangements: with family Occupation/Education: other Additional occupation/education comments: HM Gender identity (if verbalized by the patient): Female Sexual Orientation (if Verbalized by the Patient): Straight or Heterosexual Spiritual care concerns: No Meds Home Medications and Allergies Home Medications Medication Instructions Recorded Confirmed Type escitalopram oxalate 20 mg tablet 20 mg PO DAILY 08/24/22 03/05/24 History (Lexapro) dicyclomine 10 mg capsule 10 mg PO TID PRN abdominal pain 02/27/24 03/05/24 Rx #90 caps hydrocodone 5 mg-acetaminophen 325 1 tablet PO Q4H PRN pain #14 tabs 03/19/24 Rx mg tablet ondansetron 4 mg disintegrating 4 mg PO Q8H PRN nausea and 03/19/24 Rx tablet vomiting #14 tabs tamsulosin 0.4 mg capsule (Flomax) 0.4 mg PO DAILY #10 caps 03/19/24 Rx cephalexin 500 mg capsule 500 mg PO Q12H #10 caps 03/20/24 Rx ketorolac 10 mg tablet 10 mg PO Q8H PRN pain #12 tabs 03/20/24 Rx Allergies Allergy/AdvReac Type Severity Reaction Status Date / Time No Known Allergies Allergy Verified 03/05/24 11:40 Vital Signs Vital Signs - 24 hr 03/21/24 12:04 03/21/24 13:21 03/21/24 14:39 Temperature 97.9 F Pulse Rate 77 69 68 Respiratory Rate 20 18 20 Blood Pressure 132/87 127/71 120/77 Pulse Oximetry 99 98 99 Oxygen Delivery Room Air Assessment and Plan Assessment and plan (1) Right ureteral calculus: Code(s): N20.1 - Calculus of ureter Status: Acute Assessment and Plan: [place]yst[place]
--- NOTE | 2024-03-21 14:47 | WPDHPUPDATE1 ---
History and Physical Update Update Date/Time: 03/21/24 14:47 History and Physical has been reviewed, including an updated exam of the patient. There are NO changes in the patient's condition. Risks, benefits, and alternatives have been discussed and questions answered. Patient agrees to proceed with procedure.
--- NOTE | 2024-03-21 14:53 | WPDANESEPPF ---
Anes - Initial Pre Proc Eval Procedure: Operation Date: 03/21/24 16:00 Proposed Procedures p Cystoscopy, Right Ureteroscopy, Possible Right Retrograde Pyleogram, Possible Stone Extraction, Possible Stent Placement, Possible Holmium Laser Lithotripsy(Right) - Diaz Jacobs MD Date/Time: 03/21/24 14:53 Surgeon: Diaz Jacobs MD Pre Op Diagnosis: right flank pain (diag w/ kidney stone) Patient Data Age: 24 Gender: F Height: 1.7 m Weight: 93.18 kg Last Vital Signs Temp 36.6 C 03/21/24 12:04 Pulse 68 03/21/24 14:39 Resp 20 03/21/24 14:39 BP 120/77 03/21/24 14:39 Pulse Ox 99 03/21/24 14:39 O2 Del Method Room Air 03/21/24 12:04 Allergies Allergy/AdvReac Type Severity Reaction Status Date / Time No Known Allergies Allergy Verified 03/05/24 11:40 Home Medications Medication Instructions Recorded Confirmed Type escitalopram oxalate 20 mg tablet 20 mg PO DAILY 08/24/22 03/05/24 History (Lexapro) dicyclomine 10 mg capsule 10 mg PO TID PRN abdominal pain 02/27/24 03/05/24 Rx #90 caps hydrocodone 5 mg-acetaminophen 325 1 tablet PO Q4H PRN pain #14 tabs 03/19/24 Rx mg tablet ondansetron 4 mg disintegrating 4 mg PO Q8H PRN nausea and 03/19/24 Rx tablet vomiting #14 tabs tamsulosin 0.4 mg capsule (Flomax) 0.4 mg PO DAILY #10 caps 03/19/24 Rx cephalexin 500 mg capsule 500 mg PO Q12H #10 caps 03/20/24 Rx ketorolac 10 mg tablet 10 mg PO Q8H PRN pain #12 tabs 03/20/24 Rx Laboratory Tests 03/21/24 03/21/24 12:16 12:22 WBC 10.1 H K/mm3 (4.5-10.0) RBC 4.09 L M/mm3 (4.2-5.4) Hgb 13.1 g/dL (12.0-15.0) Hct 38.3 % (37.0-47.0) MCV 93.6 fl (80-100) MCH 32.0 pg (26-34) MCHC 34.2 g/dl (32-36) RDW 12.6 % (11.5-14.5) Plt Count 275 k/mm3 (150-375) MPV 10.6 H fl (7.4-10.4) Immature Gran % (Auto) 0.4 % (0-0.5) Neut % (Auto) 71.2 % (45.5-73.1) Lymph % (Auto) 20.2 % (18.3-44.2) [place] % (Auto) 7.1 % (2.6-8.5) Eos % (Auto) 0.7 % (0-4.4) Baso % (Auto) 0.4 % (0.2-1.2) Lymph # (Auto) 2.03 K/mm3 (0.9-3.2) [place] # (Auto) 0.7 H K/mm3 (0.1-0.6) Eos # (Auto) 0.1 K/mm3 (0-0.3) Baso # (Auto) 0.0 K/mm3 (0.0-0.1) Abs Immat Gran (auto) 0.04 H K/mm3 (0.00-0.031) Absolute Neuts (auto) 7.2 H K/mm3 (1.3-6.7) Absolute Nucleated RBC 0.000 K/mm3 (0.0-0.012) Nucleated RBC % 0.0 % (0.0-0.2) Sodium 136 L mmol/L (137-145) Potassium 3.8 mmol/L (3.4-5.0) Chloride 103 mmol/L (98-107) Carbon Dioxide 25 mmol/L (22-30) Anion Gap 8 mmol/L (4-12) BUN 11 mg/dL (7-17) Creatinine 1.00 mg/dL (0.7-1.0) Estim Creat Clear Calc 91 ml/min Estimated GFR > 60 (59 - ) Glucose 87 mg/dL (65-110) Calcium 9.3 mg/dL (8.4-10.2) Total Bilirubin 0.8 mg/dL (0.2-1.3) AST 21 U/L (14-36) ALT 17 U/L (6-35) Alkaline Phosphatase 80 U/L (38-126) Total Protein 8.0 g/dL (6.3-8.2) Albumin 4.3 g/dL (3.5-5.1) Urine Color Yellow (Yellow) Urine Appearance Clear (Clear) Urine pH 5.5 (5.0-9.0) Ur Specific [place] 1.022 (1.001-1.035) Urine Protein Negative mg/dL (Negative) Urine Glucose (UA) Negative mg/dL (Negative) Urine Ketones 1+ H mg/dL (Negative) Ur Blood (Man) Negative (Negative) Urine Nitrate Negative (Negative) Urine Bilirubin Negative (Negative) Urine Urobilinogen 0.2 mg/dL (<2.0) Leukocyte Esterase Rfl 1+ H BALAJI/UL (Negative) Urine RBC 0-2 /hpf (0-2) Urine WBC 11-20 H /hpf (0-3) Ur Squamous Epith Cells Occasional /hpf (Few) Urine Bacteria Rare /hpf Urine Casts 0-2 POC Urine HCG, Qual Negative (Negative)
[2024-03-21] MEDS: LACTATED RINGERS 1,000 ML 30 ML IV CONT (14:56)
[2024-03-21] MEDS: LIDOCAINE HCL 2% GEL UROJET 10 ML PKG MUCOUS MEM (15:13)
--- NOTE | 2024-03-21 15:32 | W.PM.PROC2 ---
Procedure Note - Detailed Date of Procedure 03/21/24 Pre-op Diagnosis Right ureteral stone Post-op Diagnosis Same Procedure Performed Cystoscopy, right ureteroscopy with stone extraction Surgeon Alba Monroe MD
--- NOTE | 2024-03-21 15:36 | W.PM.PROC2 ---
Procedure Note - Detailed Date of Procedure 03/21/24 Pre-op Diagnosis Right distal ureteral calculus Post-op Diagnosis Same Procedure Performed Cystoscopy, right ureteroscopy with stone extraction Surgeon Diaz Jacobs MD Anesthesia General Description of Procedure The patient was brought to the operative suite where she is prepped and draped in a routine sterile fashion while in the dorsal lithotomy position after the uneventful induction of a general LMA anesthetic. A 19F rigid cystoscope was placed in the bladder. The patient had no evidence of urethral stricture or bladder neck contracture. The bladder mucosa was endoscopically normal without hyperemia or neoplasm. There was a single, orthotopic ureteral orifice bilaterally. A 0.035 glidewire was advanced into the right renal pelvis under fluoroscopy. The distal ureter was dilated with an 8F/10F ureteral dilator. Ureteroscopy was undertaken with a short, tapered, semi-rigid ureteroscope and the stone was extracted with ease using a 1.9F Escape disposable stone basket. Due to the ease of this manipulation I opted not to place a ureteral stent. The patient's bladder was emptied and was taken to the recovery room having tolerated this procedure well. Drains No Packing No Pathology Yes
[2024-03-21] MEDS: oxyCODONE HCL (*CRX) 5 MG TAB IR PO (16:42)
== END 2024-03-21 17:18 | disposition home or self-care (01) ==
LOC: ANHED 14:22 → ANHSURGERY 14:26
PROVIDERS: Emergency Provider Emergency Medicine; PCP Family Medicine; Visit Provider Urology
PROC: (CPT 52352; principal; 2024-03-21 16:00)
DX: N20.1 Calculus of ureter (principal); E66.9 Obesity, unspecified; Z68.32 Body mass index [BMI] 32.0-32.9, adult; Z79.891 Long term (current) use of opiate analgesic; Z80.3 Family history of malignant neoplasm of breast; Z80.0 Family history of malignant neoplasm of digestive organs
CPT/HCPCS: 52352; 36415; 74176; 74420; 80053; 81001; 81025; 82365; 85025; 87077; 87086; 87186; 88300; 96365; 96375; 96376; 99285; A9270; C1769; J0696; J1100; J1885; J2250; J2270; J2405; J2704; J7120; Q9966

== ENCOUNTER 2024-03-23 08:59 | Emergency (ER) | payer OTHER, SELFPAY ==
--- NOTE | ~2024-03-23 | XR_ITS ---
EXAMINATION: XR abdomen/kub 1V DATE: 03/23/2024 11:11 INDICATION: Right ureteral stone. TECHNIQUE: A supine view of the abdomen on 2 radiographs was obtained. COMPARISON: CT abdomen and pelvis 03/23/2024 FINDINGS: There are no dilated loops of bowel. There is contrast in the renal collecting system. Ther e is mild right hydronephrosis and hydroureter. IMPRESSION: 1. Mild right hydronephrosis and hydroureter. Reviewed, dictated and finalized at location A.
--- NOTE | ~2024-03-23 | CT_ITS ---
EXAMINATION: CT abdomen pelvis w con DATE: 03/23/2024 10:48 INDICATION: Right flank pain. TECHNIQUE: Computed tomography (CT) of the abdomen and pelvis was performed with 100 mL Omnipaque 350 intravenous contrast. Automated exposure control and iterative reconstruction technique were employe d. The dose-length product was 978.15 mGy-cm. COMPARISON: CT abdomen and pelvis 03/21/2024 FINDINGS: The visualized portions of lung bases demonstrate mild atelectasis. No pleural effusion. Th e heart size is normal. No pericardial effusion. The liver, gallbladder, spleen, pancreas, adrenal gl ands, and left kidney are normal. There is a delayed right-sided contrast nephrogram. There is mild r ight hydronephrosis and hydroureter. There is a 2 mm stone in distal right ureter. There are no dilat ed loops of bowel. The appendix is normal. There are no pathologically enlarged lymph nodes. There is no free intraperitoneal fluid. There is a hemangioma in L1 vertebral body. IMPRESSION: 1. 2 mm stone in distal right ureter with mild right hydronephrosis and hydroureter. Reviewed, dictated and finalized at location A. IMPRESSION: 1. 2 mm stone in distal right ureter with mild right hydronephrosis and hydrour eter.
[2024-03-23 09:07] VITALS: BP 145/95; PULSE 66; RESP 20; TEMP 36.2; O2SAT 100
--- NOTE | 2024-03-23 09:57 | ED.GENADULT ---
HPI - General Adult General Chief complaint: Urogenital-Female Stated complaint: right flank pain Time Seen by Provider: 03/23/24 09:44 History of Present Illness HPI narrative: 24-year-old female presented to the emergency department for evaluation for recurrent right flank pain. Patient was seen in emergency department multiple times for right flank pain secondary to a kidney stone. Patient did have a extraction of kidney stone by urology on 03/21/24. Patient states that she began having worsening right flank pain today, she reports that she called Urology and was told to present to the ED for further evaluation. No significant distress at time of evaluation. Related Data Home Medications Medication Instructions Recorded Confirmed escitalopram oxalate 20 mg tablet 20 mg PO DAILY 08/24/22 03/05/24 (Lexapro) Allergies Allergy/AdvReac Type Severity Reaction Status Date / Time No Known Allergies Allergy Verified 03/05/24 11:40 Review of Systems Review of Systems: All systems reviewed & are unremarkable except as noted in HPI and below PMFSH Past Medical History Medical History Abdominal pain False labor Pyelonephritis Surgical History Surgical History No pertinent past surgical history Family History Family History Mother Hx of blood clots Hypertension Grandparent Pancreatic cancer Diabetes mellitus Grandparent Breast cancer Sibling Hypothyroid Other Diabetes mellitus Social History Social History Smoking status: Never smoker Second hand tobacco smoke exposure: Yes Additional smoking assessment comments: parents smoked in the home as a child/teen Alcohol intake: never Substance use: never Lack of Transportation: No Lack of Food: Never True Current Housing: I Have Housing Concerned About Future Housing: No Difficulty Paying Gas/Electric Bills: No Difficulty Paying for Meds: No Currently Unemployed: No Education: High School Diploma/GED Difficulty w/ Childcare or Family Care: No Living arrangements: with family Occupation/Education: other Additional occupation/education comments: HM Gender identity (if verbalized by the patient): Female Sexual Orientation (if Verbalized by the Patient): Straight or Heterosexual Spiritual care concerns: No Exam Narrative: APPEARANCE: Well appearing, no pain, no distress, well-nourished. HEAD: normocephalic, atraumatic. EYES: PERRLA/EOMI, conjunctivae clear. NOSE: Normal no drainage EARS:TMS clear with good light reflex. THROAT: Pharynx clear, no exudate. NECK: Supple. No adenopathy, no masses. RESPIRATORY: Airway patent, respirations nonlabored. Clear to auscultation bilaterally, no rales, rhonchi, wheezing. CARDIOVASCULAR: Regular rate and rhythm without murmurs rubs or gallops. ABDOMINAL: Right CVA tenderness to palpation MUSCULOSKELETAL: Moves all extremities. Strength/ROM intact, No edema, No calf tenderness. NEURO: Alert. Cranial nerves II through XII intact. Grossly intact SKIN: Warm, dry. Normal Color Course Course Emergency Course: Patient family updated the results of the workup and she was comfortable the plan for discharge to home. Vital Signs Vital signs: Vital Signs Temperature 97.1 F L 03/23/24 09:07 Pulse Rate 66 03/23/24 09:07 Respiratory Rate 20 03/23/24 09:07 Blood Pressure 145/95 H 03/23/24 09:07 Pulse Oximetry 100 03/23/24 09:07 Oxygen Delivery Room Air 03/23/24 09:07 Temperature 98 F 03/23/24 12:48 Pulse Rate 87 03/23/24 12:48 Respiratory Rate 20 03/23/24 12:48 Blood Pressure 140/100 H 03/23/24 12:48 Pulse Oximetry 98 03/23/24 12:48 Oxygen Delivery Room Air 03/23/24 09:07 Medical Decision Making LA NENA Hahn
[2024-03-23] MEDS: HYDROmorphone HCL INJ (*CRX) 1 MG/ML SYR IV PUSH (10:03)
[2024-03-23] MEDS: SODIUM CHLORIDE 0.9% IV 1,000 ML 999 ML IV CONT (10:03)
[2024-03-23] MEDS: ONDANSETRON INJ 4 MG/2 ML VIAL IV PUSH (10:03)
[2024-03-23 10:12] LABS: Basophils Percent Auto 0.5 % (0.2-1.2); Eosinophils Absolute Auto 0.1 K/mm3 (0-0.3); Eosinophils Percent Auto 0.6 % (0-4.4); Hematocrit 35.9 % (37.0-47.0); Hemoglobin 11.6 g/dL (12.0-15.0); Immature Granulocyte Absolute 0.03 K/mm3 (0.00-0.031); Immature Granulocyte Percent A 0.4 % (0-0.5); Lymphocytes Absolute Auto 3.21 K/mm3 (0.9-3.2); Lymphocytes Percent Auto 38.5 % (18.3-44.2); Mean Corpuscular HGB Conc 32.3 g/dl (32-36); Mean Corpuscular Hemoglobin 30.9 pg (26-34); Mean Corpuscular Volume 95.7 fl (80-100); Mean Platelet Volume 11.2 fl (7.4-10.4); Monocytes Absolute Auto 0.6 K/mm3 (0.1-0.6); Monocytes Percent Auto 7.3 % (2.6-8.5); Neutrophils Absolute Auto 4.4 K/mm3 (1.3-6.7); Neutrophils Percent Auto 52.7 % (45.5-73.1); Platelet Count Result 268 k/mm3 (150-375); Red Blood Count 3.75 M/mm3 (4.2-5.4); Red Cell Distribution Width 12.8 % (11.5-14.5); White Blood Count 8.3 K/mm3 (4.5-10.0)
[2024-03-23 10:24] LABS: Alanine Aminotransferase 15 U/L (6-35); Albumin Level 3.8 g/dL (3.5-5.1); Alkaline Phosphatase 68 U/L (38-126); Anion Gap 8 mmol/L (4-12); Aspartate Amino Transferase 18 U/L (14-36); Bilirubin,Total 0.6 mg/dL (0.2-1.3); Blood Urea Nitrogen 13 mg/dL (7-17); Calcium 8.9 mg/dL (8.4-10.2); Carbon Dioxide 26 mmol/L (22-30); Chloride 103 mmol/L (98-107); Estimated CRCL calculation 104 ml/min; Estimated Glomerular Filt Rate > 60; Glucose 83 mg/dL (65-110); Potassium 3.4 mmol/L (3.4-5.0); Sodium 137 mmol/L (137-145)
[2024-03-23 10:38] LABS: BEDSIDEPREGUCG Negative (Negative)
[2024-03-23 10:47] LABS: Add Urine Microscopic? YES; Appearance Urine Clear (Clear); Bacteria Urine None Seen /hpf; Bilirubin Urine Negative (Negative); Blood Urine 3+ (Negative); Color Urine Yellow (Yellow); Glucose Urine UA Negative (Negative); Ketones Urine Negative (Negative); Leukocyte Esterase Ur 1+ LEU/UL (Negative); Nitrate Urine Negative (Negative); Non Pathogenic Casts 0-2; Protein Urine Negative (Negative); RBC Urine >100 /hpf (0-2); Specific Grav Ur 1.013 (1.001-1.035); Squamous Epithelial Cell Urine None Seen /hpf (Few); Urobilinogen Urine 0.2 mg/dL (<2.0); pH Urine 6.5 (5.0-9.0)
[2024-03-23] MEDS: oxyCODONE/ACETAMINOPHEN (*CRX) 5-325 MG TABLET 1 TABLET PO (12:44)
[2024-03-23 12:48] VITALS: BP 140/100; PULSE 87; RESP 20; TEMP 36.6; O2SAT 98
== END 2024-03-23 12:49 | disposition home or self-care (01) ==
PROVIDERS: Emergency Provider Emergency Medicine; PCP Urology
DX: N13.2 Hydronephrosis with renal and ureteral calculous obstruction (principal); Z77.22 Contact with and (suspected) exposure to environmental tobacco smoke (acute) (chronic)
CPT/HCPCS: 36415; 74018; 74177; 80053; 81001; 81025; 85025; 87086; 96361; 96374; 96375; 99284; A9270; J1171; J2405; J7030; Q9967

== ENCOUNTER 2024-03-25 13:55 | Observation (INO) | payer OTHER, SELFPAY ==
--- NOTE | ~2024-03-25 | XR_ITS ---
EXAMINATION: XR stent kub - surgery DATE: 03/26/2024 14:50 INDICATION: Right ureteral stone. TECHNIQUE: 4 intraoperative fluoroscopic views of the abdomen and pelvis were obtained. I was not pre sent. Fluoroscopy exposure time was 8 seconds. COMPARISON: CT abdomen and pelvis 03/23/2024 FINDINGS: There are no dilated loops of bowel. There is a right internal ureteral stent in expected p osition. IMPRESSION: 1. Right internal ureteral stent in expected position. Reviewed, dictated and finalized at location A.
--- NOTE | 2024-03-25 14:06 | ED.GENADULT ---
HPI - General Adult General Chief complaint: Abdominal Pain Stated complaint: right flank pain Time Seen by Provider: 03/25/24 13:58 History of Present Illness HPI narrative: 24-year-old female presents to the emergency department for evaluation for persistent right flank pain. kidney stone that was removed by Urology on 03/21. Patient presented to the emergency department yesterday complaining persistent flank pain. CT scan was repeated and showed 2 mm stone in distal right ureter with mild right hydronephrosis and hydroureter. Patient's primary complaint was pain control. Patient was provided Percocet for pain control for home but patient returned to the emergency department today complaining of uncontrolled right flank pain. Patient appears to be uncomfortable upon arrival to the emergency department. Related Data Home Medications Medication Instructions Recorded Confirmed escitalopram oxalate 20 mg tablet 20 mg PO HS 08/24/22 03/25/24 (Lexapro) Allergies Allergy/AdvReac Type Severity Reaction Status Date / Time No Known Allergies Allergy Verified 03/25/24 14:14 Review of Systems Review of Systems: All systems reviewed & are unremarkable except as noted in HPI and below PMFSH Past Medical History Medical History Abdominal pain False labor Pyelonephritis Surgical History Surgical History No pertinent past surgical history Family History Family History Mother Hx of blood clots Hypertension Grandparent Pancreatic cancer Diabetes mellitus Grandparent Breast cancer Sibling Hypothyroid Other Diabetes mellitus Social History Social History Smoking status: Never smoker Second hand tobacco smoke exposure: Yes Additional smoking assessment comments: parents smoked in the home as a child/teen Alcohol intake: never Substance use: never Substance use type: does not use Do You Feel Safe in your Home?: Yes Lack of Transportation: No Lack of Food: Never True Current Housing: I Have Housing Concerned About Future Housing: No Difficulty Paying Gas/Electric Bills: No Difficulty Paying for Meds: No Currently Unemployed: No Education: High School Diploma/GED Difficulty w/ Childcare or Family Care: No Living arrangements: with family Occupation/Education: other Additional occupation/education comments: HM Gender identity (if verbalized by the patient): Female Sexual Orientation (if Verbalized by the Patient): Straight or Heterosexual Spiritual care concerns: No Exam Narrative: APPEARANCE: Uncomfortable appearing HEAD: normocephalic, atraumatic. EYES: PERRLA/EOMI, conjunctivae clear. NOSE: Normal no drainage EARS:TMS clear with good light reflex. THROAT: Pharynx clear, no exudate. NECK: Supple. No adenopathy, no masses. RESPIRATORY: Airway patent, respirations nonlabored. Clear to auscultation bilaterally, no rales, rhonchi, wheezing. CARDIOVASCULAR: Regular rate and rhythm without murmurs rubs or gallops. ABDOMINAL: Soft, nontender, nondistended, normal bowel sounds MUSCULOSKELETAL: Moves all extremities. Strength/ROM intact, No edema, No calf tenderness. NEURO: Alert. Cranial nerves II through XII intact. Good gait. Good coordination SKIN: Warm, dry. Normal Color Course Vital Signs Vital signs: Vital Signs Temperature 98 F 03/25/24 14:08 Pulse Rate 98 03/25/24 14:08 Respiratory Rate 16 03/25/24 14:08 Blood Pressure 122/72 03/25/24 14:08 Pulse Oximetry 100 03/25/24 14:08 Temperature 99.0 F 03/25/24 15:54 Pulse Rate 72 03/25/24 15:54 Respiratory Rate 18 03/25/24 15:54 Blood Pressure 121/72 03/25/24 15:54 Pulse Oximetry 98 03/25/24 15:54 Oxygen Delivery Room Air 03/25/24 17:00 Medi
[2024-03-25 14:08] VITALS: BP 122/72; PULSE 98; RESP 16; TEMP 36.6; O2SAT 100
[2024-03-25 14:09] VITALS: BP 122/72; PULSE 88; RESP 15; TEMP 36.8; O2SAT 99
[2024-03-25 14:35] LABS: BEDSIDEPREGUCG Negative (Negative)
[2024-03-25 14:41] LABS: Basophils Percent Auto 0.3 % (0.2-1.2); Eosinophils Absolute Auto 0.1 K/mm3 (0-0.3); Eosinophils Percent Auto 0.8 % (0-4.4); Hematocrit 38.6 % (37.0-47.0); Hemoglobin 12.9 g/dL (12.0-15.0); Immature Granulocyte Absolute 0.05 K/mm3 (0.00-0.031); Immature Granulocyte Percent A 0.4 % (0-0.5); Lymphocytes Absolute Auto 1.45 K/mm3 (0.9-3.2); Lymphocytes Percent Auto 10.9 % (18.3-44.2); Mean Corpuscular HGB Conc 33.4 g/dl (32-36); Mean Corpuscular Volume 92.8 fl (80-100); Mean Platelet Volume 10.9 fl (7.4-10.4); Monocytes Absolute Auto 0.8 K/mm3 (0.1-0.6); Neutrophils Absolute Auto 10.8 K/mm3 (1.3-6.7); Neutrophils Percent Auto 81.6 % (45.5-73.1); Platelet Count Result 264 k/mm3 (150-375); Red Blood Count 4.16 M/mm3 (4.2-5.4); Red Cell Distribution Width 12.5 % (11.5-14.5); White Blood Count 13.3 K/mm3 (4.5-10.0)
[2024-03-25] MEDS: HYDROmorphone HCL INJ (*CRX) 1 MG/ML SYR 0.5 MG IV PUSH ×2 (14:42→19:57)
[2024-03-25] MEDS: SODIUM CHLORIDE 0.9% IV 1,000 ML 125 ML IV CONT ×2 (14:42→23:16)
[2024-03-25 14:45] LABS: Add Urine Microscopic? YES; Appearance Urine Clear (Clear); Bacteria Urine None Seen /hpf; Bilirubin Urine Negative (Negative); Blood Urine 3+ (Negative); Color Urine Yellow (Yellow); Glucose Urine UA Negative (Negative); Ketones Urine Negative (Negative); Leukocyte Esterase Ur Trace LEU/UL (Negative); Nitrate Urine Negative (Negative); Non Pathogenic Casts 0-2; Protein Urine Negative (Negative); RBC Urine >100 /hpf (0-2); Specific Grav Ur 1.014 (1.001-1.035); Squamous Epithelial Cell Urine None Seen /hpf (Few); Urobilinogen Urine 0.2 mg/dL (<2.0); WBC Urine 0-5 /hpf (0-3)
[2024-03-25 14:50] LABS: Alanine Aminotransferase 15 U/L (6-35); Albumin Level 4.3 g/dL (3.5-5.1); Alkaline Phosphatase 76 U/L (38-126); Anion Gap 9 mmol/L (4-12); Aspartate Amino Transferase 28 U/L (14-36); Bilirubin,Total 0.9 mg/dL (0.2-1.3); Blood Urea Nitrogen 10 mg/dL (7-17); Calcium 9.5 mg/dL (8.4-10.2); Carbon Dioxide 27 mmol/L (22-30); Chloride 99 mmol/L (98-107); Estimated CRCL calculation 114 ml/min; Estimated Glomerular Filt Rate > 60; Glucose 92 mg/dL (65-110); Potassium 3.4 mmol/L (3.4-5.0); Sodium 135 mmol/L (137-145)
[2024-03-25 14:52] LABS: Prothrombin Time 13.7 Seconds (11.1-14.7)
[2024-03-25 14:53] LABS: Partial Thromboplastin Time 26.3 Seconds (22.3-36.8)
[2024-03-25 15:18] VITALS: BP 111/70; PULSE 70; RESP 16; O2SAT 99
--- NOTE | 2024-03-25 15:34 | ADMGEN ---
This patient, Lissette Duenas, was admitted to Medical Room 346-01. Patient/family oriented to hospital policies and general routines including ID bracelet, bed and alarms, visiting hours, pain management, procedures, bathroom and other care routines, personal items, smoking policy, room service/diet, and visiting hours. Information on how to activate the Rapid Response Team has been discussed. Patient/Family are encouraged to report perceived risks to care and to ask questions if they do not understand what they are told or what they should do.
[2024-03-25 15:36] VITALS: BMI 32.8
[2024-03-25 15:54] VITALS: BP 121/72; PULSE 72; RESP 18; TEMP 37.2; O2SAT 98
--- NOTE | 2024-03-25 16:34 | PM.IMHP ---
H&P: HPI History of Present Illness Date/Time: 03/25/24 16:34 Chief Complaint: Right flank pain, nausea Narrative: Pleasant young lady who has had a miserable time with a small right distal ureteral calculus over the past week. Last week she was in the ER on 3 consecutive days with a 2 mm right distal ureteral calculus. On the 3rd occasion I was contacted and did a ureteroscopy with extraction of a stone on that same day. Because of patient's apparent sensitivity in the ease in that manipulation I opted not to place ureteral stent. Unfortunately since then she continues to have intermittent severe right flank pain and has been in the ER again twice. Imaging clearly shows unobstructed right ureter with inflammation around the distal ureter. There was also possibly either another small ureteral stone or fragment of the 1 I extracted. She has had no fevers chills or gross hematuria but she does report being constipated. Review of Systems Cardiovascular: Cardiovascular: Denies chest pain, Denies lightheadedness, Denies palpitations and Denies dyspnea Respiratory: Respiratory: Denies dyspnea Gastrointestinal: Gastrointestinal: Reports abdominal pain, Denies diarrhea, Reports nausea and Denies vomiting Genitourinary: Genitourinary: Denies hematuria and Denies dysuria Endocrine: Endocrine: Denies palpitations [facility] Past Medical History Medical History Abdominal pain False labor Pyelonephritis Surgical History Surgical History No pertinent past surgical history Family History Family History Mother Hx of blood clots Hypertension Grandparent Pancreatic cancer Diabetes mellitus Grandparent Breast cancer Sibling Hypothyroid Other Diabetes mellitus Social History Social History Smoking status: Never smoker Second hand tobacco smoke exposure: Yes Additional smoking assessment comments: parents smoked in the home as a child/teen Alcohol intake: never Substance use: never Substance use type: does not use Do You Feel Safe in your Home?: Yes Lack of Transportation: No Lack of Food: Never True Current Housing: I Have Housing Concerned About Future Housing: No Difficulty Paying Gas/Electric Bills: No Difficulty Paying for Meds: No Currently Unemployed: No Education: High School Diploma/GED Difficulty w/ Childcare or Family Care: No Living arrangements: with family Occupation/Education: other Additional occupation/education comments: HM Gender identity (if verbalized by the patient): Female Sexual Orientation (if Verbalized by the Patient): Straight or Heterosexual Spiritual care concerns: No Meds Home Medications and Allergies Home Medications Medication Instructions Recorded Confirmed Type escitalopram oxalate 20 mg tablet 20 mg PO HS 08/24/22 03/25/24 History (Lexapro) ondansetron 4 mg disintegrating 4 mg PO Q8H PRN nausea and 03/19/24 03/25/24 Rx tablet vomiting #14 tabs tamsulosin 0.4 mg capsule (Flomax) 0.4 mg PO DAILY #10 caps 03/19/24 03/25/24 Rx cephalexin 500 mg capsule 500 mg PO Q12H #10 caps 03/20/24 03/25/24 Rx oxycodone-acetaminophen 5 mg-325 1 tablet PO Q8H PRN pain #14 tabs 03/23/24 03/25/24 Rx mg tablet (Percocet) Allergies Allergy/AdvReac Type Severity Reaction Status Date / Time No Known Allergies Allergy Verified 03/25/24 14:14 Vital Signs Vital Signs - 24 hr 03/25/24 14:08 03/25/24 14:09 03/25/24 15:18 Temperature 98 F 98.2 F Pulse Rate 98 88 70 Respiratory Rate 16 15 16 Blood Pressure 122/72 122/72 111/70 Pulse Oximetry 100 99 99 Oxygen Delivery Room Air 03/25/24 15:54 Temperature 99.0 F Pulse Rate 72 Respiratory Rate 18 Blood Pressure 121/72 Pulse Oximetry 98 Oxygen Delivery Exam
[2024-03-25] MEDS: KETOROLAC 15 MG/ML VIAL (*BKC) IV PUSH ×2 (17:09→23:16)
[2024-03-25] MEDS: MAGNESIUM CITRATE 300 ML BTL 150 ML PO (17:10)
[2024-03-25] MEDS: ONDANSETRON INJ 4 MG/2 ML VIAL IV PUSH (19:56)
[2024-03-25 21:17] VITALS: BP 118/75; PULSE 116; RESP 20; TEMP 37; O2SAT 97
[2024-03-26] VITALS (12 sets, daily range): BP systolic 103–153; BP diastolic 64–89; PULSE 63–98; RESP 16–25; TEMP 36–37.5; O2SAT 94–99
[2024-03-26] MEDS: ONDANSETRON INJ 4 MG/2 ML VIAL IV PUSH (05:19)
[2024-03-26] MEDS: HYDROmorphone HCL INJ (*CRX) 1 MG/ML SYR 0.5 MG IV PUSH ×2 (05:19→11:31)
[2024-03-26] MEDS: KETOROLAC 15 MG/ML VIAL (*BKC) IV PUSH ×2 (09:18→19:36)
--- NOTE | 2024-03-26 09:30 | WPDUROPN2 ---
Progress Note: A&P Assessment and Plan (1) Hydronephrosis, right: Code(s): N13.30 - Unspecified hydronephrosis Status: Acute (2) Right ureteral calculus: Code(s): N20.1 - Calculus of ureter Status: Acute Assessment and Plan: Symptomatic right ureteral obstruction either due to a small ureteral calculus or ureteral edema. Given persistent pain despite hydration and analgesics overnight, will proceed with cystoscopy, right ureteroscopy, and right ureteral stent placement this afternoon with Dr. Jacobs. Discussed details of procedure with patient, risks, benefits, and she is agreeable to proceed Continue NPO diet Subjective Subjective Date/Time Seen: 03/26/24 09:30 Interval history: Lissette reports slight improvement in her right flank pain today, though still persistent and quite bothersome. Denies nausea, vomiting, fever, or chills. Denies dysuria. Urine culture negative. Review of Systems Review of Systems: All systems reviewed & are unremarkable except as noted in HPI and below Exam Narrative: General: Awake, alert, comfortable, no acute distress HEENT: Normocephalic, atraumatic, sclerae anicteric Respiratory: Normal respiratory effort, no accessory muscle use Abdomen: Nondistended, soft, nontender Skin: Normal coloration, warm and dry Neurologic: No focal neuro deficits noted Psychiatric: Appropriate mood and affect, judgment and insight intact Objective Data Vital Signs Vital Signs: Vital Signs - 24 hr 03/25/24 14:08 03/25/24 14:09 03/25/24 15:18 Temperature 98 F 98.2 F Pulse Rate 98 88 70 Respiratory Rate 16 15 16 Blood Pressure 122/72 122/72 111/70 Pulse Oximetry 100 99 99 Oxygen Delivery Room Air 03/25/24 15:54 03/25/24 17:00 03/25/24 21:17 Temperature 99.0 F 98.6 F Pulse Rate 72 116 H Respiratory Rate 18 20 Blood Pressure 121/72 118/75 Pulse Oximetry 98 97 Oxygen Delivery Room Air 03/26/24 06:00 03/26/24 08:46 Temperature 99.5 F Pulse Rate 98 Respiratory Rate 20 Blood Pressure 118/81 Pulse Oximetry 96 Oxygen Delivery Room Air Intake/Output Intake/Output: Intake & Output 03/23/24 03/24/24 03/25/24 03/26/24 23:59 23:59 23:59 23:59 Intake Total 1000 500 Balance 1000 500 Meds/Results Medications: Active Medications Generic Name Dose Route Start Last Admin Trade Name Freq PRN Reason Stop Dose Admin Hydromorphone HCl 0.5 mg 03/25/24 14:20 03/26/24 05:19 Hydromorphone Hcl Inj (*Crx) 1 Mg/Ml Syr IV PUSH 0.5 mg Q4H PRN Administration Pain Rated 7-10 Sodium Chloride 1,000 mls @ 125 mls/hr 03/25/24 14:20 03/25/24 23:16 Normal Saline Iv IV CONT 125 mls/hr .Q8H JAVED Administration Ketorolac Tromethamine 15 mg 03/25/24 16:40 03/26/24 09:18 Ketorolac 15 Mg/Ml Vial (*Bkc) IV PUSH 15 mg Q6H PRN Administration Pain Rated 4-6 Ondansetron HCl 4 mg 03/25/24 14:20 03/26/24 05:19 Ondansetron Inj 4 Mg/2 Ml Vial IV PUSH 4 mg Q4H PRN Administration Nausea Labs Labs: Laboratory Results - last 24 hr 03/25/24 03/25/24 14:31 14:33 WBC 13.3 H RBC 4.16 L Hgb 12.9 Hct 38.6 MCV 92.8 MCH 31.0 MCHC 33.4 RDW 12.5 Plt Count 264 MPV 10.9 H Immature Gran % (Auto) 0.4 Neut % (Auto) 81.6 H Lymph % (Auto) 10.9 L [place] % (Auto) 6.0 Eos % (Auto) 0.8 Baso % (Auto) 0.3 Lymph # (Auto) 1.45 [place] # (Auto) 0.8 H Eos # (Auto) 0.1 Baso # (Auto) 0.0 Abs Immat Gran (auto) 0.05 H Absolute Neuts (auto) 10.8 H Absolute Nucleated RBC 0.000 Nucleated RBC % 0.0 PT 13.7 INR 1.0 APTT 26.3 Sodium 135 L Potassium 3.4 Chloride 99 Carbon Dioxide 27 Anion Gap 9 BUN 10 Creatinine 0.80 Estim Creat Clear Calc 114 Estimated GFR > 60 Glucose 92 Calcium 9.5 Total Bilirubin 0.9 AST 28 ALT 15 Alkaline Phosphatase 76 Total Protein 8.0 Albumin 4.3 Urine Color Yellow Urine Appearance
[2024-03-26] MEDS: SODIUM CHLORIDE 0.9% IV 1,000 ML 125 ML IV CONT (11:32)
[2024-03-26] MEDS: LACTATED RINGERS 1,000 ML 30 ML IV CONT (13:56)
--- NOTE | 2024-03-26 13:57 | WPDANESEPPF ---
Anes - Initial Pre Proc Eval Procedure: Operation Date: 03/26/24 15:00 Proposed Procedures p Cystoscopy,Right Ureteroscopy,Right Stent Placement - Diaz Jacobs MD Date/Time: 03/26/24 13:57 Surgeon: Nelson Rubalcava MD Pre Op Diagnosis: ureteral calculi in the distal righ ureter,pain Patient Data Age: 24 Gender: F Height: 1.7 m Weight: 95.1 kg Last Vital Signs Temp 98.1 F 03/26/24 13:55 Pulse 78 03/26/24 13:55 Resp 20 03/26/24 06:00 BP 139/88 03/26/24 13:55 Pulse Ox 99 03/26/24 13:55 O2 Del Method Room Air 03/26/24 13:55 Allergies Allergy/AdvReac Type Severity Reaction Status Date / Time No Known Allergies Allergy Verified 03/25/24 14:14 Home Medications Medication Instructions Recorded Confirmed Type escitalopram oxalate 20 mg tablet 20 mg PO HS 08/24/22 03/25/24 History (Lexapro) ondansetron 4 mg disintegrating 4 mg PO Q8H PRN nausea and 03/19/24 03/25/24 Rx tablet vomiting #14 tabs tamsulosin 0.4 mg capsule (Flomax) 0.4 mg PO DAILY #10 caps 03/19/24 03/25/24 Rx cephalexin 500 mg capsule 500 mg PO Q12H #10 caps 03/20/24 03/25/24 Rx oxycodone-acetaminophen 5 mg-325 1 tablet PO Q8H PRN pain #14 tabs 03/23/24 03/25/24 Rx mg tablet (Percocet) Laboratory Tests 03/25/24 03/25/24 14:31 14:33 WBC 13.3 H K/mm3 (4.5-10.0) RBC 4.16 L M/mm3 (4.2-5.4) Hgb 12.9 g/dL (12.0-15.0) Hct 38.6 % (37.0-47.0) MCV 92.8 fl (80-100) MCH 31.0 pg (26-34) MCHC 33.4 g/dl (32-36) RDW 12.5 % (11.5-14.5) Plt Count 264 k/mm3 (150-375) MPV 10.9 H fl (7.4-10.4) Immature Gran % (Auto) 0.4 % (0-0.5) Neut % (Auto) 81.6 H % (45.5-73.1) Lymph % (Auto) 10.9 L % (18.3-44.2) [place] % (Auto) 6.0 % (2.6-8.5) Eos % (Auto) 0.8 % (0-4.4) Baso % (Auto) 0.3 % (0.2-1.2) Lymph # (Auto) 1.45 K/mm3 (0.9-3.2) [place] # (Auto) 0.8 H K/mm3 (0.1-0.6) Eos # (Auto) 0.1 K/mm3 (0-0.3) Baso # (Auto) 0.0 K/mm3 (0.0-0.1) Abs Immat Gran (auto) 0.05 H K/mm3 (0.00-0.031) Absolute Neuts (auto) 10.8 H K/mm3 (1.3-6.7) Absolute Nucleated RBC 0.000 K/mm3 (0.0-0.012) Nucleated RBC % 0.0 % (0.0-0.2) PT 13.7 Seconds (11.1-14.7) INR 1.0 APTT 26.3 Seconds (22.3-36.8) Sodium 135 L mmol/L (137-145) Potassium 3.4 mmol/L (3.4-5.0) Chloride 99 mmol/L (98-107) Carbon Dioxide 27 mmol/L (22-30) Anion Gap 9 mmol/L (4-12) BUN 10 mg/dL (7-17) Creatinine 0.80 mg/dL (0.7-1.0) Estim Creat Clear Calc 114 ml/min Estimated GFR > 60 (59 - ) Glucose 92 mg/dL (65-110) Calcium 9.5 mg/dL (8.4-10.2) Total Bilirubin 0.9 mg/dL (0.2-1.3) AST 28 U/L (14-36) ALT 15 U/L (6-35) Alkaline Phosphatase 76 U/L (38-126) Total Protein 8.0 g/dL (6.3-8.2) Albumin 4.3 g/dL (3.5-5.1) Urine Color Yellow (Yellow) Urine Appearance Clear (Clear) Urine pH 6.0 (5.0-9.0) Ur Specific [place] 1.014 (1.001-1.035) Urine Protein Negative mg/dL (Negative) Urine Glucose (UA) Negative mg/dL (Negative) Urine Ketones Negative mg/dL (Negative) Ur Blood (Man) 3+ H (Negative) Urine Nitrate Negative (Negative) Urine Bilirubin Negative (Negative) Urine Urobilinogen 0.2 mg/dL (<2.0) Leukocyte Esterase Rfl Trace H BALAJI/UL (Negative) Urine RBC >100 H /hpf (0-2) Urine WBC 0-5 /hpf (0-3) Ur Squamous Epith Cells None seen /hpf (Few) Urine Bacteria None seen /hpf Urine Casts 0-2 POC Urine HCG, Qual Negative (Negative) Patient hx anesthesia problems: none Family hx anesthesia problems: none Results Review: All pre-operative results and
[2024-03-26] MEDS: LIDOCAINE HCL 2% GEL UROJET 10 ML PKG MUCOUS MEM (14:09)
--- NOTE | 2024-03-26 14:50 | W.PM.PROC2 ---
Procedure Note - Detailed Date of Procedure 03/26/24 Pre-op Diagnosis Right distal ureteral stone, right hydronephrosis Post-op Diagnosis Same Procedure Performed Cystoscopy, right ureteroscopy with stone extraction, right ureteral stent placement Surgeon Diaz Jacobs MD Anesthesia General Description of Procedure Patient is brought the operative suite received prepped draped in routine sterile fashion while in dorsal lithotomy position after the uneventful induction of general anesthetic. Cystoscopy was undertaken with a 19 F rigid cystoscope. Bladder neck and urethra are endoscopically normal. There was mild hyperemia around the right ureteral orifice. 0.035 in glidewire was advanced into the right renal pelvis under fluoroscopy in the distal ureter was dilated with an 8 F 10 F dilator. Ureteroscopy was undertaken with a short tapered semi-rigid ureteral scope. She has a tiny stone flakes in her distal right ureter that appears to be obstructed by significant ureteral edema. I extracted that stone with a 1.9 F disposable stone basket. I repeated ureteroscopy to the UP[facility] to ensure there were no additional ureteral stones. A 4.8 F variable length stent was positioned with proximal coil in the renal pelvis and distal coil in bladder. Scopes was removed and she was taken recovery room in good condition Drains Yes Pathology Yes
[2024-03-26] MEDS: fentaNYL CITRATE INJ (*CRX) 100 MCG/2 ML VIAL 25 MCG IV PUSH (15:19)
[2024-03-26] MEDS: ESCITALOPRAM OXALATE 10 MG TABLET 20 MG PO (19:34)
[2024-03-26] MEDS: CEPHALEXIN 500 MG CAPSULE PO (19:34)
[2024-03-27] MEDS: SODIUM CHLORIDE 0.9% IV 1,000 ML 125 ML IV CONT (01:30)
[2024-03-27 06:00] VITALS: BP 125/77; PULSE 61; RESP 20; TEMP 37; O2SAT 100
--- NOTE | 2024-03-27 07:24 | WPDUROPN2 ---
Progress Note: A&P Assessment and Plan (1) Calculi, ureter: Code(s): N20.1 - Calculus of ureter Status: Acute (2) Hydronephrosis, right: Code(s): N13.30 - Unspecified hydronephrosis Status: Acute Assessment and Plan: Patient feeling much better and tolerating stent well Discharged today with stent removal next week Subjective Subjective Date/Time Seen: 03/27/24 07:24 Interval history: Comfortable, slept well and tolerating stent Review of Systems Cardiovascular: Cardiovascular: Denies chest pain, Denies lightheadedness, Denies palpitations and Denies dyspnea Respiratory: Respiratory: Denies dyspnea Gastrointestinal: Gastrointestinal: Denies diarrhea, Denies nausea and Denies vomiting Genitourinary: Genitourinary: Denies hematuria and Denies dysuria Endocrine: Endocrine: Denies palpitations Exam Const: General: no acute distress Resp: Effort & Inspection: normal respiratory effort GI: Inspection: non-distended GI Palp: No abdominal tenderness and No Guarding due to palpation present (GI) Auscultation: normal bowel sounds Objective Data Vital Signs Vital Signs: Vital Signs - 24 hr 03/26/24 08:46 03/26/24 13:55 03/26/24 14:52 Temperature 98.1 F 97.4 F L Pulse Rate 78 75 Respiratory Rate 25 H Blood Pressure 139/88 103/64 Pulse Oximetry 99 98 Oxygen Delivery Room Air Room Air Simple Face Mask Oxygen Flow Rate 6 03/26/24 15:05 03/26/24 15:20 03/26/24 15:35 Temperature Pulse Rate 90 80 73 Respiratory Rate 20 20 20 Blood Pressure 116/72 117/77 115/76 Pulse Oximetry 99 99 99 Oxygen Delivery Simple Face Mask Simple Face Mask Room Air Oxygen Flow Rate 6 6 03/26/24 15:50 03/26/24 16:05 03/26/24 16:20 Temperature 97.6 F 96.8 F L Pulse Rate 83 73 72 Respiratory Rate 20 18 16 Blood Pressure 119/80 112/65 127/78 Pulse Oximetry 94 94 95 Oxygen Delivery Room Air Room Air Oxygen Flow Rate 03/26/24 16:35 03/26/24 17:05 03/26/24 21:25 Temperature 97.9 F 97.0 F L 98.2 F Pulse Rate 63 75 73 Respiratory Rate 18 16 18 Blood Pressure 130/87 124/89 153/71 H Pulse Oximetry 98 96 97 Oxygen Delivery Oxygen Flow Rate 03/27/24 06:00 Temperature 98.6 F Pulse Rate 61 Respiratory Rate 20 Blood Pressure 125/77 Pulse Oximetry 100 Oxygen Delivery Oxygen Flow Rate Intake/Output Intake/Output: Intake & Output 03/24/24 03/25/24 03/26/24 03/27/24 23:59 23:59 23:59 23:59 Intake Total 1000 3080 1000 Output Total 100 Balance 1000 2980 1000 Meds/Results Medications: Active Medications Generic Name Dose Route Start Last Admin Trade Name Freq PRN Reason Stop Dose Admin Cephalexin HCl 500 mg 03/26/24 21:00 03/26/24 19:34 Cephalexin 500 Mg Capsule PO 03/29/24 09:01 500 mg Q12H JAVED Administration Escitalopram Oxalate 20 mg 03/26/24 21:00 03/26/24 19:34 Escitalopram Oxalate 10 Mg Tablet PO 20 mg HS JAVED Administration Hydromorphone HCl 0.5 mg 03/25/24 14:20 03/26/24 11:31 Hydromorphone Hcl Inj (*Crx) 1 Mg/Ml Syr IV PUSH 0.5 mg Q4H PRN Administration Pain Rated 7-10 Sodium Chloride 1,000 mls @ 125 mls/hr 03/25/24 14:20 03/27/24 01:30 Normal Saline Iv IV CONT 125 mls/hr .Q8H JAVED Administration Ketorolac Tromethamine 15 mg 03/25/24 16:40 03/26/24 19:36 Ketorolac 15 Mg/Ml Vial (*Bkc) IV PUSH 15 mg Q6H PRN Administration Pain Rated 4-6 Ondansetron HCl 4 mg 03/25/24 14:20 03/26/24 05:19 Ondansetron Inj 4 Mg/2 Ml Vial IV PUSH 4 mg Q4H PRN Administration Nausea Tamsulosin HCl 0.4 mg 03/27/24 09:00 Tamsulosin Hcl 0.4 Mg Capsule PO DAILY [facility] Radiology Results: ITS Impressions Ureter Stent X-Ray 03/26/24 15:18 IMPRESSION: 1. Right internal ureteral stent in expected position.
--- NOTE | 2024-03-27 07:26 | PM.DS ---
DS: Admitting Diagnosis Discharge Date 03/27/2024 Admitting Diagnosis Right ureteral calculus DS: Discharge Diagnosis Discharge Diagnosis (1) Calculi, ureter: Code(s): N20.1 - Calculus of ureter Status: Acute (2) Hydronephrosis, right: Code(s): N13.30 - Unspecified hydronephrosis Status: Acute DS: Summary Hospital Course Hospital Course: Plus an lady who has really struggled with a small right distal ureteral stone. Last week we did extraction but between a small residual fragment in ureteral edema she had recurrent pain necessitating repeat ureteroscopy with fragment extraction and stent placement. After that she felt much better. Plan to leave the stent for 5-6 days. Time Spent with Patient Time attestation: Total time spent providing and/or coordinating discharge services: Exam Const: General: no acute distress Resp: Effort & Inspection: normal respiratory effort GI: Inspection: non-distended GI Palp: No abdominal tenderness and No Guarding due to palpation present (GI) Auscultation: normal bowel sounds DS: Data Data Completed and Pending Pending studies at discharge: Pending at discharge 03/26/24 15:50 Surgical [PTH] Routine Discharge Plan Discharge Attending physician on discharge: Nelson Rubalcava Discharging Clinician: Diaz Jacobs Patient Disposition: Home, Self-Care Activity: other - see discharge instructions Diet: as tolerated Discharge Instructions: 1) Activity: no driving or important decisions x24 hours. 2) Diet: resume your normal, pre-admission diet. 3) Follow-up: 1-2 weeks / call for appointment ([phone]). Patient Instructions: Antibiotic Form Stand Alone Forms: General Discharge Information Follow-up/Referrals: Diaz Jacobs MD [Physician] - Discharge Medications: Continued escitalopram oxalate [Lexapro] 20 mg tablet 20 mg PO HS ondansetron 4 mg tablet,disintegrating 4 mg PO Q8H PRN (Reason: nausea and vomiting) Qty: 14 0RF tamsulosin [Flomax] 0.4 mg capsule 0.4 mg PO DAILY Qty: 10 0RF cephalexin 500 mg capsule 500 mg PO Q12H Qty: 10 0RF oxycodone-acetaminophen [Percocet] 5-325 mg tablet 1 tablet PO Q8H PRN (Reason: pain) Qty: 14 0RF Date of admission: 03/25/24 14:20 Primary Care Provider: Sheryl Anne Admitting Provider: Nelson Rubalcava Attending physician on admission: Nelson Rubalcava Condition: Stable
[2024-03-27] MEDS: TAMSULOSIN HCL 0.4 MG CAPSULE PO (08:25)
[2024-03-27] MEDS: CEPHALEXIN 500 MG CAPSULE PO (08:25)
== END 2024-03-27 09:33 | disposition home or self-care (01) ==
LOC: ANHED 14:21 → ANH3MED 15:21
PROVIDERS: Admitting Provider Urology; Emergency Provider Emergency Medicine; PCP Family Medicine; Visit Provider Urology
PROC: (CPT 52352; principal; 2024-03-26 15:00)
DX: N13.2 Hydronephrosis with renal and ureteral calculous obstruction (principal); E66.9 Obesity, unspecified; Z68.32 Body mass index [BMI] 32.0-32.9, adult
CPT/HCPCS: 52352; 52332; 36415; 80053; 81001; 81025; 82365; 85025; 85610; 85730; 88300; 96361; 96374; 96375; 96376; 99285; A9270; C1769; C2617; G0378; J0690; J1100; J1171; J1885; J2003; J2250; J2371; J2405; J2704; J3010; J7030; J7120

== ENCOUNTER 2024-05-28 10:10 | Emergency (ER) | payer OTHER, SELFPAY ==
--- NOTE | ~2024-05-28 | US_ITS ---
US abdomen limited INDICATION: Abdominal pain PROCEDURE: Realtime right upper abdominal ultrasound. COMPARISON: No prior studies for comparison. FINDINGS: The pancreas is normal without focal mass or pancreatic ductal dilation. Liver echotexture is increased, consistent with fatty infiltration. There is normal directional flow in the portal ve in. The gallbladder is normal without stones, gallbladder wall thickening or pericholecystic fluid. Comm on bile duct measures 1.1 mm. No sonographic Chávez's sign. IMPRESSION: 1: Fatty infiltration of the liver. Reviewed, dictated and finalized at location B. UCTION OPERATOR
--- NOTE | ~2024-05-28 | US_ITS ---
EXAMINATION: US OB <=14 wk fetus w TV DATE: 05/28/2024 12:38 INDICATION: Abdominal pain. Positive test. TECHNIQUE: Real-time transabdominal and transvaginal obstetric ultrasound. FINDINGS: No prior studies for comparison. The uterus measures 6.7 x 3.6 x 5.5 cm. There is a fluid collection in the endometrium measuring 0.64 cm. No significant decidual reaction is seen. Adjacent to the fluid collection there is an elliptica l hypoechoic structure measuring 3.1 x 0.8 cm, possibly a a subchorionic hemorrhage. No pole or yolk sac are identified. No heart motions. Right ovary measures 3 x 3.1 x 2.1 cm and contains a 2.1 cm cyst. Left ovary measures 1.9 x 1.7 x 1.6 cm. There is normal Doppler signal in both ovaries. No free fluid in the pelvis. IMPRESSION: 1. Endometrial fluid collection possibly early gestational sac measuring 0.64 cm. No heart mike ons or pole identified. Adjacent hypoechoic structure measures up to 3.1 cm, possibly subchorio wendy hemorrhage. Differential diagnosis includes very early intrauterine , ectopic and failed . Recommend follow-up with serial quantitative beta-hCG levels and ultrasound as clinically warranted. Reviewed, dictated and finalized at location B. G TECHNICIAN IMPRESSION: 1. Endometrial fluid collection possibly early gestational sac measuring 0.64 c m. No heart motions or pole identified. Adjacent hypoechoic structu re measures up to 3.1 cm, possibly subchorionic hemorrhage. Differential diagno sis includes very early intrauterine , ectopic and failed pr egnancy. Recommend follow-up with serial quantitative beta-hCG levels and ultra sound as clinically warranted.
[2024-05-28 10:12] VITALS: BP 132/93; PULSE 123; RESP 18; TEMP 36.6; O2SAT 99
[2024-05-28 10:36] LABS: Basophils Percent Auto 0.3 % (0.2-1.2); Eosinophils Percent Auto 0.2 % (0-4.4); Hematocrit 40.9 % (37.0-47.0); Hemoglobin 13.8 g/dL (12.0-15.0); Immature Granulocyte Absolute 0.03 K/mm3 (0.00-0.031); Immature Granulocyte Percent A 0.3 % (0-0.5); Lymphocytes Absolute Auto 0.55 K/mm3 (0.9-3.2); Lymphocytes Percent Auto 6.2 % (18.3-44.2); Mean Corpuscular HGB Conc 33.7 g/dl (32-36); Mean Corpuscular Hemoglobin 31.6 pg (26-34); Mean Corpuscular Volume 93.6 fl (80-100); Mean Platelet Volume 10.7 fl (7.4-10.4); Monocytes Absolute Auto 0.6 K/mm3 (0.1-0.6); Monocytes Percent Auto 6.3 % (2.6-8.5); Neutrophils Absolute Auto 7.7 K/mm3 (1.3-6.7); Neutrophils Percent Auto 86.7 % (45.5-73.1); Platelet Count Result 259 k/mm3 (150-375); Red Blood Count 4.37 M/mm3 (4.2-5.4); Red Cell Distribution Width 13.1 % (11.5-14.5); White Blood Count 8.9 K/mm3 (4.5-10.0)
--- NOTE | 2024-05-28 10:36 | ED_ITS ---
HPI - Nausea/Vomiting/Diarrhea General Chief complaint: Nausea/Vomiting/Diarrhea Stated complaint: vomiting Time Seen by Provider: 05/28/24 10:26 History of Present Illness HPI Narrative: Patient is a 24-year-old female who presents to the ER with complaints nausea, vomiting, diarrhea. She reports she thinks she approximately 5 weeks , but does not think this is morning sickness that she is experiencing. Patient reports her symptoms started last night. She believe she has approximately 10 episodes of diarrhea since then. Patient also endorses history of kidney stones and reports she last had surgery for stent placement in March. She endorses right abdominal pain that radiates to her flank, along with bilateral lower quadrant abdominal pain. Patient denies any recent fevers, headaches, or chest pain. Related Data Home Medications ?Medication ?Instructions ?Recorded ?Confirmed ?Last Taken ?Type escitalopram oxalate 20 mg tablet 20 mg PO HS 08/24/22 03/25/24 Unknown History (Lexapro) Allergies Allergy/AdvReac Type Severity Reaction Status Date / Time No Known Allergies Allergy Verified 05/28/24 10:16 Review of Systems 2 Review of Systems: All systems reviewed & are unremarkable except as noted in HPI and below PMFSH Past Medical History Medical History Abdominal pain Pyelonephritis False labor Surgical History Surgical History No pertinent past surgical history Family History Family History Mother Hx of blood clots Hypertension Grandparent Pancreatic cancer Diabetes mellitus Grandparent Breast cancer Sibling Hypothyroid Other Diabetes mellitus Social History Social History Smoking status: Never smoker Second hand tobacco smoke exposure: Yes Additional smoking assessment comments: parents smoked in the home as a child/teen Alcohol intake: never Substance use: never Substance use type: does not use Do You Feel Safe in your Home?: Yes Lack of Transportation: No Lack of Food: Never True Current Housing: I Have Housing Concerned About Future Housing: No Difficulty Paying Gas/Electric Bills: No Difficulty Paying for Meds: No Currently Unemployed: No Education: High School Diploma/GED Difficulty w/ Childcare or Family Care: No Living arrangements: with family Occupation/Education: other Additional occupation/education comments: HM Gender identity (if verbalized by the patient): Female Sexual Orientation (if Verbalized by the Patient): Straight or Heterosexual Spiritual care concerns: No Exam 2 Narrative: GENERAL: Well appearing, well-nourished, non-toxic, in no acute distress. HEAD: Normocephalic, atraumatic. NECK: Supple. No adenopathy, no masses. RESPIRATORY: Airway patent, respirations nonlabored. Clear to auscultation bilaterally, no rales, rhonchi, wheezing. CARDIOVASCULAR: Regular rate and rhythm without murmurs, rubs, or gallops. Peripheral pulses 2+ and equal bilaterally. ABDOMINAL: Soft, mildly tender in all four quadrants, nondistended, no hepatosplenomegaly. Normoactive BS. MUSCULOSKELETAL: Moves all extremities. Strength/ROM intact without gross deformities. SKIN: Warm, dry, normal color. No rashes. NEURO: A&O X3. Speech clear. Cranial nerves II-XII grossly intact. Steady gait. No ataxic movements. PSYCHIATRIC: Appropriate mood and affect. Normal interaction. Course Vital Signs Vital signs: Vital Signs Temperature 36.6 C 05/28/24 10:12 Pulse Rate 123 H 05/28/24 10:12 Respiratory Rate 18 05/28/24 10:12 Blood Pressure 132/93 H 05/28/24 10:12 Pulse Oximetry 99 05/28/24 10:12 Oxygen Delivery Room Air 05/28/24 10:12 Temperature 36.6 C 05/28/24 10:12 Pulse Rate 93 05/28/24 13:06 Respiratory Rate 16 05/28/24 13:06 Blood Pressure 101/63 05/28/24 13:06 Pulse Oximetry 99 05/28/24 13:06 Oxygen Delivery Room Air 05/28/24 10:12 MDM - Nausea/Vomiting/Diarrhea MDM Narrative Medical decision making narrative: Patient is a 24-year-old female who presents to the ER with complaints nausea, vomiting, diarrhea. She reports she thinks she approximately 5 weeks , but does not think this is morning sickness that she is experiencing. Patient reports her symptoms started last night. She believe she has approximately 10 episodes of diarrhea since then. Patient also endorses history of kidney stones and reports she last had surgery for stent placement in March. She endorses right abdominal pain that radiates to her flank, along with bilateral lower quadrant abdominal pain. Patient denies any recent fevers, headaches, or chest pain. Labs Ordered: Cbc, CMP, UA, COVID/RSV/flu, lipase Imaging Ordered: ultrasound Ob less than 14 weeks, limited abdominal ultrasound Results: Patient's limited abdominal ultrasound indicates Fatty infiltration of the liver. Patient's ultrasound OB less than 14 weeks indicates Endometrial fluid collection possibly early gestational sac measuring 0.64 cm. No heart motions or pole identified. Adjacent hypoechoic structure measures up to 3.1 cm, possibly subchorionic hemorrhage. Differential diagnosis includes very early intrauterine , ectopic and failed . Recommend follow-up with serial quantitative beta-hCG levels and ultrasound as clinically warranted. Diagnosis: threatened , early intrauterine , viral gastroenteritis, dehydration, UTI Patient Education/Shared MDM: Results shared with patient. Extensive education was given to patient regarding when to return to the ER and follow-up with her OBGYN. It was explained to patient that she was dehydrated and had a urinary tract infection. Patient advised to follow-up with her OBGYN for serial hCG levels. She was also advised to stay hydrated and take medications as prescribed. Patient verbalizes understanding and is in agreement with plan. Differential Diagnosis Differential diagnosis: Likely food poisoning, gastroenteritis, dehydration and other (UTI, intrauterine , ectopic ) Lab Data Attestation: I reviewed the patient's lab results. 05/28/24 10:26 05/28/24 10:26 Labs: Lab Results 05/28/24 05/28/24 05/28/24 Range/Units 10:26 10:43 10:44 WBC 8.9 (4.5-10.0) K/mm3 RBC 4.37 (4.2-5.4) M/mm3 Hgb 13.8 (12.0-15.0) g/dL Hct 40.9 (37.0-47.0) % MCV 93.6 (80-100) fl MCH 31.6 (26-34) pg MCHC 33.7 (32-36) g/dl RDW 13.1 (11.5-14.5) % Plt Count 259 (150-375) k/mm3 MPV 10.7 H (7.4-10.4) fl Immature Gran % (Auto) 0.3 (0-0.5) % Neut % (Auto) 86.7 H (45.5-73.1) % Lymph % (Auto) 6.2 L (18.3-44.2) % [place] % (Auto) 6.3 (2.6-8.5) % Eos % (Auto) 0.2 (0-4.4) % Baso % (Auto) 0.3 (0.2-1.2) % Lymph # (Auto) 0.55 L (0.9-3.2) K/mm3 [place] # (Auto) 0.6 (0.1-0.6) K/mm3 Eos # (Auto) 0.0 (0-0.3) K/mm3 Baso # (Auto) 0.0 (0.0-0.1) K/mm3 Abs Immat Gran (auto) 0.03 (0.00-0.031) K/mm3 Absolute Neuts (auto) 7.7 H (1.3-6.7) K/mm3 Absolute Nucleated RBC 0.000 (0.0-0.012) K/mm3 Nucleated RBC % 0.0 (0.0-0.2) % Sodium 135 L (137-145) mmol/L Potassium 3.7 (3.4-5.0) mmol/L Chloride 106 (98-107) mmol/L Carbon Dioxide 22 (22-30) mmol/L Anion Gap 7 (4-12) mmol/L BUN 9 (7-17) mg/dL Creatinine 0.60 L (0.7-1.0) mg/dL Estim Creat Clear Calc 146 ml/min Estimated GFR > 60 (59 - ) Glucose 111 H (65-110) mg/dL Calcium 9.4 (8.4-10.2) mg/dL Total Bilirubin 1.1 (0.2-1.3) mg/dL AST 21 (14-36) U/L ALT 18 (6-35) U/L Alkaline Phosphatase 82 (38-126) U/L Total Protein 8.0 (6.3-8.2) g/dL Albumin 4.3 (3.5-5.1) g/dL Lipase 25 (23-300) U/L Beta HCG, Quant 2273.80 mIU/ML Urine Color Dark yellow (Yellow) Urine Appearance Cloudy H (Clear) Urine pH 6.0 (5.0-9.0) Ur Specific [place] 1.027 (1.001-1.035) Urine Protein Trace (Negative) mg/dL Urine Glucose (UA) Negative (Negative) mg/dL Urine Ketones Trace H (Negative) mg/dL Ur Blood (Man) Negative (Negative) Urine Nitrate Negative (Negative) Urine Bilirubin Negative (Negative) Urine Urobilinogen 0.2 (<2.0) mg/dL Add Ur Microanalysis Reviewed Leukocyte Esterase Rfl 1+ H (Negative) BALAJI/UL Urine RBC 11-20 H (0-2) /hpf Urine WBC 21-50 H (0-3) /hpf Ur Squamous Epith Cells Moderate (Few) /hpf Urine Bacteria 4+ H /hpf Urine Casts 3-5 Urine Mucus Present /lpf POC Urine HCG, Qual Positive (Negative) Influenza A (RT-PCR) Negative (Negative) Influenza B (RT-PCR) Negative (Negative) RSV (RT-PCR) Negative (Negative) SARS-CoV-2 RNA (RT-PCR) Negative (Negative) Imaging Data Attestation: I personally reviewed and interpreted this imaging study as follows: Radiologist's impression: Impressions Abdomen Ultrasound 05/28/24 12:43 IMPRESSION: 1: Fatty infiltration of the liver. Obstetrics Ultrasound 05/28/24 12:45 IMPRESSION: 1. Endometrial fluid collection possibly early gestational sac measuring 0.64 cm. No heart motions or pole identified. Adjacent hypoechoic structure measures up to 3.1 cm, possibly subchorionic hemorrhage. Differential diagnosis includes very early intrauterine , ectopic and failed . Recommend follow-up with serial quantitative beta-hCG levels and ultrasound as clinically warranted. Discharge Plan Discharge Clinical Impression: Threatened , Urinary tract infection, Mild dehydration, Kidney stone, , ectopic, with intrauterine Patient Disposition: Home, Self-Care Condition: Stable Instructions: Antibiotic Form, Ectopic (DC), Acute Nausea and Vomiting (ED), Urinary Tract Infection in (ED) Patient Language: Guinean Prescriptions: New Unisom (doxylamine) 25 mg tablet 25 mg PO HS PRN (Reason: nausea and vomiting) Qty: 14 0RF promethazine 12.5 mg tablet 12.5 mg PO TID PRN (Reason: nausea and vomiting) Qty: 14 0RF cephalexin 500 mg capsule 500 mg PO Q12H Qty: 20 0RF No Action escitalopram oxalate [Lexapro] 20 mg tablet 20 mg PO HS ondansetron 4 mg tablet,disintegrating 4 mg PO Q8H PRN (Reason: nausea and vomiting) Qty: 14 0RF tamsulosin [Flomax] 0.4 mg capsule 0.4 mg PO DAILY Qty: 10 0RF cephalexin 500 mg capsule 500 mg PO Q12H Qty: 10 0RF oxycodone-acetaminophen [Percocet] 5-325 mg tablet 1 tablet PO Q8H PRN (Reason: pain) Qty: 14 0RF dicyclomine 10 mg capsule 10 mg PO TID PRN (Reason: abdominal pain) 90 Days Qty: 270 0RF Follow-up/Referrals: Sheryl Anne DO [Primary Care Provider] - Time of Disposition: 14:28
[2024-05-28] MEDS: ACETAMINOPHEN 325 MG TABLET 650 MG PO (10:43)
[2024-05-28] MEDS: diphenhydrAMINE HCl INJ 50 MG/ML VIAL 25 MG IV PUSH (10:43)
[2024-05-28] MEDS: METOCLOPRAMIDE HCL INJ 10 MG/2 ML VIAL IV PUSH (10:43)
[2024-05-28] MEDS: SODIUM CHLORIDE 0.9% IV 1,000 ML 999 ML IV CONT (10:43)
[2024-05-28 10:47] LABS: BEDSIDEPREGUCG Positive (Negative)
[2024-05-28 10:53] LABS: Alanine Aminotransferase 18 U/L (6-35); Albumin Level 4.3 g/dL (3.5-5.1); Alkaline Phosphatase 82 U/L (38-126); Anion Gap 7 mmol/L (4-12); Aspartate Amino Transferase 21 U/L (14-36); Bilirubin,Total 1.1 mg/dL (0.2-1.3); Blood Urea Nitrogen 9 mg/dL (7-17); Calcium 9.4 mg/dL (8.4-10.2); Carbon Dioxide 22 mmol/L (22-30); Chloride 106 mmol/L (98-107); Estimated CRCL calculation 146 ml/min; Estimated Glomerular Filt Rate > 60; Glucose 111 mg/dL (65-110); Lipase 25 U/L (23-300); Potassium 3.7 mmol/L (3.4-5.0); Sodium 135 mmol/L (137-145)
[2024-05-28 11:03] LABS: Add Urine Microscopic? YES; Appearance Urine Cloudy (Clear); Bacteria Urine 4+ /hpf; Bilirubin Urine Negative (Negative); Blood Urine Negative (Negative); Color Urine Dark Yellow (Yellow); Glucose Urine UA Negative (Negative); Ketones Urine Trace mg/dL (Negative); Leukocyte Esterase Ur 1+ LEU/UL (Negative); Need Manual Microscopic Reviewed; Nitrate Urine Negative (Negative); Protein Urine Trace mg/dL (Negative); Specific Grav Ur 1.027 (1.001-1.035); Squamous Epithelial Cell Urine Moderate /hpf (Few); Urobilinogen Urine 0.2 mg/dL (<2.0); WBC Urine 21-50 /hpf (0-3)
[2024-05-28 11:04] LABS: Mucus Urine Present /lpf
--- NOTE | 2024-05-28 11:20 | PC.NURSE ---
Pt to ultrasound.
[2024-05-28 11:31] LABS: Influenza A QL RT-PCR Negative (Negative); Influenza B QL RT-PCR Negative (Negative); RSV RNA, RT-PCR Negative (Negative); SARS-CoV-2 RNA PCR Negative (Negative)
[2024-05-28 13:06] VITALS: BP 101/63; PULSE 93; RESP 16; O2SAT 99
== END 2024-05-28 14:53 | disposition home or self-care (01) ==
PROVIDERS: Emergency Medicine; Emergency Provider Registered Nurse; PCP Family Medicine
DX: O20.0 Threatened abortion (principal); O23.41 Unspecified infection of urinary tract in pregnancy, first trimester; N39.0 Urinary tract infection, site not specified; O99.281 Endocrine, nutritional and metabolic diseases complicating pregnancy, first trimester; E86.0 Dehydration; O99.891 Other specified diseases and conditions complicating pregnancy; N20.0 Calculus of kidney; O00.91 Unspecified ectopic pregnancy with intrauterine pregnancy; Z77.22 Contact with and (suspected) exposure to environmental tobacco smoke (acute) (chronic); O99.611 Diseases of the digestive system complicating pregnancy, first trimester; K76.0 Fatty (change of) liver, not elsewhere classified; Z3A.01 Less than 8 weeks gestation of pregnancy
CPT/HCPCS: 36415; 76705; 76801; 76817; 80053; 81001; 81025; 83690; 84702; 85025; 87637; 96361; 96374; 96375; 99284; A9270; J1200; J2765; J7030

== ENCOUNTER 2024-05-29 14:34 | Outpatient (CLI) | payer OTHER, SELFPAY | END 2024-05-29 14:35 | disposition home or self-care (01) | PROVIDERS: PCP Family Medicine; Visit Provider Obstetrics & Gynecology Gynecology | DX: Z32.01 Encounter for pregnancy test, result positive (principal) | CPT/HCPCS: 36415; 84702 ==

== ENCOUNTER 2024-05-31 09:28 | Outpatient (CLI) | payer OTHER, SELFPAY | END 2024-05-31 09:29 | disposition home or self-care (01) | PROVIDERS: PCP Family Medicine; Visit Provider Obstetrics & Gynecology Gynecology | DX: Z32.01 Encounter for pregnancy test, result positive (principal) | CPT/HCPCS: 36415; 84702 ==

== ENCOUNTER 2024-06-03 12:34 | Outpatient (RCR) | payer OTHER, SELFPAY | END 2024-06-24 14:39 | disposition home or self-care (01) | LOC: ANHLAB 12:34 | PROVIDERS: PCP Family Medicine; Visit Provider Obstetrics & Gynecology Gynecology | DX: Z36.87 Encounter for antenatal screening for uncertain dates (principal); Z32.01 Encounter for pregnancy test, result positive | CPT/HCPCS: 36415; 84702 ==

== ENCOUNTER 2024-06-04 09:58 | Outpatient (CLI) | payer OTHER, SELFPAY ==
--- NOTE | ~2024-06-04 | US_ITS ---
EXAMINATION: US OB transvaginal DATE: 06/05/2024 9:38 ENDOCRINOLOGY NURSE INDICATION: Uncertain dates COMPARISON: 05/28/2024 TECHNIQUE: Real-time transabdominal obstetric ultrasound FINDINGS: 2 para 1 Estimated date of delivery by last menstrual period is 01/29/2025. Last menstrual period is given as 04/24/2024 The uterus measures 6.7 x 4.3 x 6.8 cm. A gestational sac is identified within the uterus, to the left of midline. A pole is identified, with a crown-rump length that measures 0.23 cm, corresponding to an appro ximate gestational age of 5 weeks and 5 days. cardiac activity is identified on cine evaluation without a discrete measurement obtained. Despite prolonged interrogation, the right ovary was not visualized. The left ovary measures 2.9 x 2.1 x 2.3 cm. Adjacent to the gestational sac is a well-circumscribed focus of mixed echogenicity measuring 19 x 7 x 15 mm, possibly a perigestational hemorrhage for which short-term follow-up is recommended. Estimated date of delivery by ultrasound is 01/30/2025 IMPRESSION: Single intrauterine gestation with an approximate gestational age of 5 weeks and 5 days, with c ardiac activity identified. Perigestational hemorrhage for which short-term follow-up is recommended. Despite prolonged interrogation the right ovary was not visualized. Reviewed, dictated and finalized at location A. CRINOLOGY NURSE IMPRESSION: Single intrauterine gestation with an approximate gestational age of 5 weeks an d 5 days, with cardiac activity identified. Perigestational hemorrhage for which short-term follow-up is recommended. Despite prolonged interrogation the right ovary was not visualized.
== END 2024-06-04 09:59 | disposition home or self-care (01) ==
LOC: MICIMG 09:58
PROVIDERS: PCP Family Medicine; Visit Provider Obstetrics & Gynecology Gynecology
DX: Z36.87 Encounter for antenatal screening for uncertain dates (principal); Z3A.01 Less than 8 weeks gestation of pregnancy
CPT/HCPCS: 76817

== ENCOUNTER 2024-06-13 13:47 | Outpatient (CLI) | payer OTHER, SELFPAY ==
--- NOTE | ~2024-06-13 | US_ITS ---
EXAMINATION: US OB transvaginal DATE: 06/13/2024 14:35 EMERGENCY CARE ATTENDANT INDICATION: Perigestational hemorrhage COMPARISON: 06/04/2024 and 05/28/2024 TECHNIQUE: Real-time transabdominal and transvaginal obstetric ultrasound. FINDINGS: 2 para 1 The uterus measures 7.8 x 4.2 cm. A gestational sac is redemonstrated within the uterus. A pole is identified, with a crown-rump length that is decreasing in size measuring 0.21 cm (co mpared to 2.3 mm 9 days earlier), corresponding to an approximate gestational age of 5 weeks and 5 da ys. cardiac activity is only intermittent on select cine images, a significant interval change from the previous examination. Interval increase in the size of the fluid collection adjacent to the gestational sac, now measuring 4 cm in greatest dimension. IMPRESSION: Single intrauterine gestation, now with only intermittent cardiac activity detected on select c ine images only. Decrease in size of the pole when compared with previous examination 9 days earlier. Increase i n size of the perigestational hemorrhage seen on previous examination of 9 days earlier. This culmination of findings suggest failed , with likely demise, as detailed above. Reviewed, dictated and finalized at location A. GENCY CARE ATTENDANT IMPRESSION: Single intrauterine gestation, now with only intermittent cardiac activit y detected on select cine images only. Decrease in size of the pole when compared with previous examination 9 da ys earlier. Increase in size of the perigestational hemorrhage seen on previous examination of 9 days earlier. This culmination of findings suggest failed , with likely demise , as detailed above.
== END 2024-06-13 13:48 | disposition home or self-care (01) ==
PROVIDERS: PCP Family Medicine; Visit Provider Obstetrics & Gynecology Gynecology
DX: O36.8910 Maternal care for other specified fetal problems, first trimester, not applicable or unspecified (principal); Z3A.00 Weeks of gestation of pregnancy not specified
CPT/HCPCS: 76817

== ENCOUNTER 2024-06-18 12:32 | Outpatient (RCR) | payer OTHER, SELFPAY | END 2024-06-24 14:41 | disposition home or self-care (01) | LOC: ANHLAB 12:32 | PROVIDERS: PCP Family Medicine; Visit Provider Obstetrics & Gynecology Gynecology | DX: O03.9 Complete or unspecified spontaneous abortion without complication (principal) | CPT/HCPCS: 36415; 84702; 86850; 86900; 86901 ==

== ENCOUNTER 2024-07-02 12:08 | Outpatient (RCR) | payer OTHER, SELFPAY ==
[2024-06-24 16:15] LABS: Beta HCG Quantitative 44.22 mIU/ML
[2024-07-02 13:35] LABS: Beta HCG Quantitative 4.29 mIU/ML
== END 2024-09-22 23:59 | disposition home or self-care (01) ==
LOC: ANHLAB 12:08
PROVIDERS: PCP Family Medicine; Visit Provider Obstetrics & Gynecology Gynecology
DX: O03.9 Complete or unspecified spontaneous abortion without complication (principal)
CPT/HCPCS: 36415; 84702

== ENCOUNTER 2024-09-20 14:40 | Emergency (ER) | payer OTHER, SELFPAY ==
[2024-09-20 15:00] VITALS: BP 111/81; PULSE 117; RESP 16; TEMP 36.9; O2SAT 98
[2024-09-20 15:37] LABS: EDCOVIDSCREEN Negative (Negative); EDINFLUASCREEN Negative (Negative); EDINFLUBSCREEN Negative (Negative); EDSTREPNEGPOS1 Positive (Negative)
--- NOTE | 2024-09-20 15:37 | ED_ITS ---
HPI - URI/Sore Throat General Chief Complaint: Upper Respiratory Infection Stated Complaint: VOMITING/FEVER/CHILLS/HEADACHE/SORE THROAT Source: patient and RN notes reviewed Mode of arrival: ambulatory Limitations: no limitations History of Present Illness HPI Narrative: 24-year-old female presents Express Care complaining of sore throat, fever, congestion, nausea, vomiting since today. Patient states she vomited 3 times this morning. Since then patient states she is able to keep fluids down. Patient denies any difficulty breathing, difficulty swallowing, abdominal pain, diarrhea. Patient states she has taken Tylenol for her symptoms with mild relief. Related Data Home Medications ?Medication ?Instructions ?Recorded ?Confirmed ?Last Taken ?Type escitalopram oxalate 20 mg tablet 20 mg PO HS 08/24/22 09/20/24 Unknown History (Lexapro) Allergies Allergy/AdvReac Type Severity Reaction Status Date / Time No Known Allergies Allergy Verified 09/20/24 14:53 Review of Systems Review of Systems: CONSTITUTIONAL: Positive for pain and negative for chills, or sweats. EYES: Denies visual changes, redness, or discharge. ENT: Denies rhinorrhea, or otalgia. Positive for congestion and sore throat. CARDIOVASCULAR: Denies chest pain, palpitations, or edema. RESPIRATORY: Denies cough or dyspnea. GASTROINTESTINAL: Denies abdominal pain, or diarrhea. Positive for nausea vomiting GENITOURINARY: Denies dysuria or hematuria. SKIN: Denies rash or itching. MUSCULOSKELETAL: Denies back pain, joint pain, or myalgia. NEUROLOGIC: Denies headache, numbness, or weakness. PSYCHIATRIC: Denies anxiety or depression. All other systems reviewed are negative, except as documented in HPI. [facility] Past Medical History Medical History Abdominal pain Pyelonephritis False labor Surgical History Surgical History No pertinent past surgical history Family History Family History Mother Hx of blood clots Hypertension Grandparent Pancreatic cancer Diabetes mellitus Grandparent Breast cancer Sibling Hypothyroid Other Diabetes mellitus Social History Social History Smoking status: Never smoker Second hand tobacco smoke exposure: Yes Additional smoking assessment comments: parents smoked in the home as a child/teen Alcohol intake: never Substance use: never Substance use type: does not use Do You Feel Safe in your Home?: Yes Lack of Transportation: No Lack of Food: Never True Current Housing: I Have Housing Concerned About Future Housing: No Difficulty Paying Gas/Electric Bills: No Difficulty Paying for Meds: No Currently Unemployed: No Education: High School Diploma/GED Difficulty w/ Childcare or Family Care: No Living arrangements: with family Occupation/Education: other Additional occupation/education comments: HM Gender identity (if verbalized by the patient): Female Sexual Orientation (if Verbalized by the Patient): Straight or Heterosexual Spiritual care concerns: No Comments At the time of my signature, I reviewed and agree with the nursing past medical, surgical, social, and family history. There is no relevant family history pertinent to the patient complaint. Exam Narrative: GENERAL: This is a well-nourished, well-developed adult, in no apparent distress. They are non ill-appearing, nontoxic appearing. HEAD: normocephalic, atraumatic. EYES: Sclera clear/white. Vision is grossly intact. EARS: External ears normal, auditory canals clear and without drainage, TMs normal without perforation. Hearing grossly intact. NOSE: External nose normal with no obvious nasal discharge, nares without redness, no rhinorrhea. THROAT: Mucous membranes moist, posterior pharynx is erythematous. No exudate present. Uvula midline NECK: Neck supple, non-tender without lymphadenopathy, masses or thyromegaly. CARDIOVASCULAR: Tachycardic rate and rhythm without murmurs, gallops, or rubs. RESPIRATORY: Clear to auscultation. Breath sounds equal bilaterally. No wheezes, rales, or rhonchi. GASTROINTESTINAL: Abdomen soft, non-tender, nondistended. SKIN: warm, Dry, intact with no suspicious lesions or rash, good texture and turgor. NEURO: awake, alert, and oriented to person, place and time. There were no obvious focal neurologic abnormalities. EXTREMITIES: No joint tenderness, effusion, or edema noted. Course Course Level of Care: Express Care Visit Vital Signs Vital signs: Vital Signs Temperature 98.5 F 09/20/24 15:00 Pulse Rate 117 H 09/20/24 15:00 Respiratory Rate 16 09/20/24 15:00 Blood Pressure 111/81 09/20/24 15:00 Pulse Oximetry 98 09/20/24 15:00 Temperature 98.5 F 09/20/24 15:00 Pulse Rate 117 H 09/20/24 15:00 Respiratory Rate 16 09/20/24 15:00 Blood Pressure 111/81 09/20/24 15:00 Pulse Oximetry 98 09/20/24 15:00 Reviewed MDM - URI/Sore Throat MDM Narrative Medical decision making narrative: Rapid strep was positive. COVID and influenza negative. Will treat empirically with amoxicillin. Will also give patient Zofran as needed for nausea. Patient states she has been able to keep fluids down since she vomited this morning. Discussed physical exam findings. Advised supportive measures and signs/symptoms to go to the ER. Pt is appropriate for outpt treatment and f/u. Differential Diagnosis Differential diagnosis: Likely upper respiratory infection, viral infection, pharyngitis and other (Viral gastroenteritis) Lab Data Attestation: I reviewed the patient's lab results. Labs: Lab Results 09/20/24 Range/Units 15:35 POC Influenza A Ag Pending POC Influenza B Ag Pending POC SARS CoV-2 Ag Pending POC Grp A Strep Screen Pending Critical Care Time Critical Care Time Critical Care Time: No Discharge Plan Discharge Clinical Impression: Acute streptococcal pharyngitis Patient Disposition: Home Condition: Stable Instructions: Antibiotic Form, Strep Throat (ED) Additional Instructions: You tested positive for strep throat. ?Please take the amoxicillin as prescribed until gone. ?You will be contagious for 24 hours after starting the medication. ?After 24 hours on antibiotics throw tooth brush away and start using a new one. Wash your sheets and cup/water bottle that is used daily. Do not share drinks. Take Tylenol or Ibuprofen for pain or fever, if able. ?Rest and stay hydrated. ?Follow up with your PCP in 3 days if symptoms are not improving. ?Go to the ER immediately if you develop worsening symptoms such as shortness of breath, difficulty swallowing. ? Patient Language: Liberian Prescriptions: New amoxicillin 875 mg tablet 875 mg PO Q12H 7 Days Qty: 14 0RF ondansetron 4 mg tablet,disintegrating 4 mg PO Q8H PRN (Reason: nausea and vomiting) Qty: 14 0RF No Action escitalopram oxalate [Lexapro] 20 mg tablet 20 mg PO HS Follow-up/Referrals: Sheryl Anne DO [Primary Care Provider] - Stand Alone Forms: Work/School Release IP Time of Disposition: 15:23
== END 2024-09-20 15:27 | disposition home or self-care (01) ==
PROVIDERS: PCP Family Medicine
DX: J02.0 Streptococcal pharyngitis (principal); Z20.822 Contact with and (suspected) exposure to COVID-19
CPT/HCPCS: 87426; 87804; 87880; 99213; G0463

== ENCOUNTER 2024-11-13 16:01 | Outpatient (CLI) | payer OTHER, SELFPAY ==
--- OUTSIDE RECORDS SUMMARY | 2024-11-13 16:06 | XMS_ITS | Patient Health Record ---
Author Organization [facility] Address [address] [place] [address] Care Team Providers Care Finance Manager Name Role Phone Dave Wilkerson Primary Care Provider [phone] Reason For Referral No Information Plan Of Treatment No Information Insurance Providers Payer Name Payer Address Payer Phone Subscriber Number Group Number Insured Name Patient Relationship to Insured Coverage Start Date Coverage End Date [facility] [address] [place] [address] [id number] Lissette Barrera Self - patient is the insured 0
--- OUTSIDE RECORDS SUMMARY | 2024-11-13 16:06 | XMS_ITS | Clinical Summary ---
Author Organization [facility] Address [address] [place] [phone] Care Team Providers Care Stem Dryer Maintainer Name Role Phone Chelo Weiss NP Primary Care Provider +1- [phone] Allergies No known active allergies Medications escitalopram (LEXAPRO) 20 mg tablet 09/09/2023 Active Active Problems Problem Noted Date Diagnosed Date Family history of BRCA gene mutation 11/01/2023 Encounter for nonprocreative genetic counseling and testing 11/01/2023 Family history of breast cancer 11/01/2023 Medical History Medical History Date Comments Anxiety Depression Family History Medical History Relation Name Comments No Known Problems Brother Vlad BRCA 1 or 2 Cousin Lisa No Known Problems Father BRCA 1 or 2 Father's Brother Victor Manuel Prostate cancer Father's Brother Victor Manuel Dementia Maternal Grandfather Diabetes Maternal Grandfather Dementia Maternal Grandmother No Known Problems Mother Diabetes Nephew Breast cancer Paternal Grandmother Diabetes Paternal Grandmother Pancreatic cancer Paternal Grandmother Thyroid disease Sister Yris Relation Name Status Comments Brother Vlad Alive Cousin Lisa Alive Father Alive Father's Brother Victor Manuel Maternal Grandfather Maternal Grandmother Mother Alive Nephew Alive Paternal Grandfather Alive Paternal Grandmother Alive Sister Yris Alive Social History Tobacco Use Types Packs/Day Years Used Date Smoking Tobacco: Never Tobacco Cessation:Counseling Given: Not Answered AUDIT-C Answer Date Recorded Q1: How often do you have a drink containing alcohol? Never 11/01/2023 Q2: How many drinks containi ng alcohol do you have on a typical day when you are drinking? Patient does not drink Q3: How often do you have si x or more drinks on one occasion? 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 Gender Identity Not on file Sexual Orientation Not on file Obstetrics History Last Filed Vital Signs Vital Sign Reading Time Taken Comments Blood Pressure 113/80 11/01/2023 12:20 PM CDT Pulse 84 11/01/2023 12:20 PM CDT Temperature 36.8 C (98.3 F) 11/01/2023 12:20 PM CDT Respiratory Rate 18 11/01/2023 12:2 0 PM CDT Oxygen Saturation 98% 11/01/2023 12: 20 PM CDT Inhaled Oxygen Concentration - - Weight 93.8 kg (206 lb 12.8 oz) 024 12:20 PM CDT no shoes Height 171.5 cm (5' 7.5) 11/01/2023 12 :20 PM CDT Body Mass Index 31.91 11/01/2023 12:20 PM CDT Plan of Treatment Health Maintenance Due Date Last Done Comments Cervical Cancer Screening 2002 Depression Screening 2002 Hepatitis C Screening 2002 DTaP/Tdap/Td Vaccine (1 - Tdap) 2013 Varicella Vaccines (1 of 2 - 13+ 2-dose series) 2015 HPV Vaccines (1 - 3-dose series) 2017 Meningococcal B Vaccine (1 o f 2 - Standard) 2018 Hepatitis B Screening 02/07/2020 Regular Well Visit/Exam 18-64 02/07/2020 Influenza Vaccine (Season Ended) 2025 Pneumococcal vaccine <65 Aged Out No longer eligible based on patient's age to complete this topic Insurance [facility] CHOICE [facility]US [facility] H[facility]/PPO Address: [facility] [address] [place] [address] Care Teams Stem Dryer Maintainer Relationship Specialty Start Date End Date Chelo Weiss NP PCP - General Internal Medicine 11/01/23
--- OUTSIDE RECORDS SUMMARY | 2024-11-13 16:06 | XMS_ITS | Referral Summary ---
Author Organization [facility] Address [address] [place] [phone] Care Team Providers Care Monitor And Storage Bin Tender Name Role Phone Chelo Weiss NP Primary Care Provider +1- [phone] Allergies No known active allergies Medications escitalopram (LEXAPRO) 20 mg tablet 09/09/2023 Active Active Problems Problem Noted Date Diagnosed Date Family history of BRCA gene mutation 11/01/2023 Encounter for nonprocreative genetic counseling and testing 11/01/2023 Family history of breast cancer 11/01/2023 Social History Tobacco Use Types Packs/Day Years [...] on file 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
[2024-11-13 17:14] LABS: Beta HCG Quantitative < 2.39 mIU/ML
== END 2024-11-13 16:02 | disposition home or self-care (01) ==
LOC: ANHLAB 16:04
PROVIDERS: PCP Family Medicine; Visit Provider Obstetrics & Gynecology Gynecology
DX: O26.851 Spotting complicating pregnancy, first trimester (principal); Z3A.00 Weeks of gestation of pregnancy not specified
CPT/HCPCS: 36415; 84702

== ENCOUNTER 2025-01-09 15:01 | Emergency (ER) | payer OTHER, SELFPAY ==
--- NOTE | ~2025-01-09 | US_ITS ---
EXAM: PELVIC ULTRASOUND HISTORY: R pelvic pain; CT showing ovarian cyst COMPARISON: None. Reference is made to CT examination of the abdomen and pelvis performed 2 hours ear lier. FINDINGS: UTERUS: 7.1 x 3.5 x 6.3 cm. The uterus is anteverted and anteflexed. The endometrial complex measures 2.6 mm. RIGHT OVARY: The right ovary is unremarkable in size measuring 3.6 x 2.5 x 3.1 cm. Dopplerable flow is identified. A well-circumscribed anechoic avascular structure is identified within the right ovary measuring 2.5 x 1.6 x 1.5 cm, representing a simple cyst for which no further follow-up is needed LEFT OVARY: The left ovary is unremarkable in echogenicity and size measuring 3.0 x 3.0 x 1.9 cm Dopplerable flow is identified. No free fluid is identified within the pelvis. IMPRESSION: 2.5 cm simple cyst within the right ovary which does not meet size criteria for follow-up in a patien t of this age. Reviewed, dictated and finalized at location A. IMPRESSION: 2.5 cm simple cyst within the right ovary which does not meet size criteria for follow-up in a patient of this age.
--- NOTE | ~2025-01-09 | CT_ITS ---
EXAMINATION: CT abdomen pelvis w con DATE: 01/09/2025 17:37 INDICATION: Right lower quadrant abdominal/flank pain. TECHNIQUE: Computed tomography (CT) of the abdomen and pelvis was performed with 100 mL Omnipaque-350 intravenous contrast. Automated exposure control and iterative reconstruction technique were employe d. The dose-length product was 937.21 mGy-cm. COMPARISON: CT dated 03/23/2024 FINDINGS: Minimal dependent atelectasis in the bilateral lower lobes. Heart size is normal. No pericardial or p leural effusion. Liver, gallbladder, pancreas, bilateral adrenal glands and kidneys are normal. Uncha nged 9 mm low-attenuation lesion at the caudal margin of the spleen most likely splenic cyst or heman gioma. Bladder, uterus and left adnexa are unremarkable. 1.9 cm right ovarian cyst/follicle. Addition al 1.3 cm peripherally enhancing right ovarian lesion suspicious for corpus luteum cyst. Normal symme tric enhancement of the bilateral ovaries. Bowels including the appendix are normal. No free intraper itoneal gas or fluid. No pathologically enlarged abdominal or pelvic lymphadenopathy. Thickened verti sebastien oriented trabecula pattern within a lucent hemangioma at the L1 vertebral body. Bones are other connors unremarkable. IMPRESSION: 1. No acute intra-abdominal/pelvic process. Specifically the appendix, kidneys and ureters are normal . 2. 1.9 cm right ovarian cyst/follicle the smaller 1.3 similar peripherally enhancing likely right ova tamra corpus luteum cyst. Reviewed, dictated and finalized at location A. IMPRESSION: 1. No acute intra-abdominal/pelvic process. Specifically the appendix, kidneys and ureters are normal. 2. 1.9 cm right ovarian cyst/follicle the smaller 1.3 similar peripherally enha ncing likely right ovarian corpus luteum cyst.
--- OUTSIDE RECORDS SUMMARY | 2025-01-09 15:04 | XMS_ITS | Referral Summary ---
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
--- OUTSIDE RECORDS SUMMARY | 2025-01-09 15:04 | XMS_ITS | Clinical Summary ---
Author Organization [facility] Address [facility]ly [facility] [place] [address] Care Team Providers Care Career Coordinator Name Role Phone None, Provider Primary Care Provider Unavaila ble Social History Tobacco Use Types Packs/Day Years Used Date Smoking Tobacco: Never Assessed Comments Unknown Sex and Gender Information Value Date Recorded Sex Assigned at Not on file Legal Sex Female 10:03 PM CDT Gender Identity Not on file Sexual Orientation Not on file Last Filed Vital Signs Vital Sign Reading Time Taken Comments Blood Pressure 130/80 12/10/2023 10:07 PM CDT Pulse 89 12/10/2023 10:07 PM CDT Temperature 36.6 C (97.9 F) 12/10/2023 10:07 PM CDT Respiratory Rate 18 12/10/2023 10:07 PM CDT Oxygen Saturation 100% 12/10/2023 10:07 PM CDT Inhaled Oxygen Concentration - - Weight 93 kg (205 lb) 12/10/2023 10:07 PM CDT Height 170.2 cm (5' 7) 12/10/2023 10:07 PM CDT Body Mass Index 32.11 12/10/2023 10:07 PM CDT Plan of Treatment Health Maintenance Due Date Last Done Comments Cervical Cancer Screening Pa p Smear (Age 21 to 29) Every 3 Years 2002 Cervical Cancer Screening 2002 Annual Physical 2005 HPV Vaccines (1 - 3-dose series) 2017 Meningococcal B Vaccine (1 o f 2 - Standard) 2018 Hepatitis C 02/07/2020 DTaP, Tdap and Td Vaccines ( 1 - Tdap) 2021 Hepatitis B Vaccines (1 of 3 - 19+ 3-dose series) 2021 COVID-19 Vaccine ( - 2023-2 5 season) 2024 Meningococcal Vaccine Aged Out No gurinder justin eligible based on patient's age to complete this topic Pneumococcal Vaccine: Pediat rics (0 to 5 Years) and At-Risk Patients (6 to 49 Years) Aged Out No longer eligible b ased on patient's age to complete this topic RSV Immunizations Under 20 Months Aged Out No longer eligible based on patient's age to complete this topic Insurance [facility] Xavier Crow [place] [id number] [facility] Care Teams Career Coordinator Relationship Specialty Start Date End Date None, Provider, PCP - General UNKNOWN PHYSICIAN SPECIALTY 12/10/23
--- OUTSIDE RECORDS SUMMARY | 2025-01-09 15:04 | XMS_ITS | Clinical Summary ---
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
--- OUTSIDE RECORDS SUMMARY | 2025-01-09 15:04 | XMS_ITS | Patient Health Record ---
Author Organization [facility] Address [address] [place] [address] Care Team Providers Care Assistant Unit Forester Name Role Phone Dave Wilkerson Primary Care Provider Reason For Referral No Information Plan Of Treatment No Information Insurance Providers Payer Name Payer Address Payer Phone Subscriber Number Group Number Insured Name Patient Relationship to Insured Coverage Start Date Coverage End Date [facility] [address] [place] [address] [id number] Lissette Barrera Self - patient is the insured 0
[2025-01-09 15:05] VITALS: BP 130/80; PULSE 67; RESP 16; TEMP 36.7; O2SAT 100
[2025-01-09 15:58] VITALS: BP 123/90; PULSE 73; RESP 12; TEMP 36.7; O2SAT 100
[2025-01-09 16:14] LABS: Hematocrit 41.4 % (37.0-47.0); Hemoglobin 13.8 g/dL (12.0-15.0); Immature Granulocyte Percent A 0.3 % (0-0.5); Lymphocytes Absolute Auto 2.71 K/mm3 (0.9-3.2); Mean Corpuscular HGB Conc 33.3 g/dl (32-36); Mean Corpuscular Hemoglobin 31.4 pg (26-34); Mean Corpuscular Volume 94.1 fl (80-100); Nucleated Red Blood Cells Absolute Auto 0.000 K/mm3 (0.0-0.012); Nucleated Red Blood Cells Perc 0.0 % (0.0-0.2); Platelet Count Result 286 k/mm3 (150-375); Red Blood Count 4.40 M/mm3 (4.2-5.4); White Blood Count 9.0 K/mm3 (4.5-10.0)
[2025-01-09 16:26] LABS: Alanine Aminotransferase 26 U/L (6-35); Albumin Level 4.5 g/dL (3.5-5.1); Alkaline Phosphatase 82 U/L (38-126); Anion Gap 6 mmol/L (4-12); Aspartate Amino Transferase 30 U/L (14-36); Bilirubin,Total 0.6 mg/dL (0.2-1.3); Blood Urea Nitrogen 9 mg/dL (7-17); Calcium 9.6 mg/dL (8.4-10.2); Carbon Dioxide 26 mmol/L (22-30); Chloride 101 mmol/L (98-107); Estimated CRCL calculation 100 ml/min; Estimated Glomerular Filt Rate > 60; Glucose 87 mg/dL (65-110); Potassium 3.8 mmol/L (3.4-5.0); Sodium 133 mmol/L (137-145); Total Protein 8.1 g/dL (6.3-8.2)
--- OUTSIDE RECORDS SUMMARY | 2025-01-09 16:35 | XMS_ITS | Clinical Summary ---
Author Organization 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
--- OUTSIDE RECORDS SUMMARY | 2025-01-09 16:35 | XMS_ITS | Clinical Summary ---
Author Organization [facility] Address [facility] [place] [address] Care Team Providers Care Sugar Cane Farm Manager Name Role Phone None, Provider Primary Care [...] patient's age to complete this topic Insurance [facility] Xavier Crow [place] [id number] [place] [address] Care Teams Sugar Cane Farm Manager Relationship Specialty Start Date End Date None, Provider, PCP - General UNKNOWN PHYSICIAN SPECIALTY 12/10/23
--- OUTSIDE RECORDS SUMMARY | 2025-01-09 16:35 | XMS_ITS | Referral Summary ---
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
[2025-01-09 17:07] LABS: BEDSIDEPREGUCG Negative (Negative)
[2025-01-09 17:23] LABS: Add Urine Microscopic? YES; Appearance Urine Clear (Clear); Glucose Urine UA Negative (Negative); Leukocyte Esterase Ur 1+ LEU/UL (Negative); Need Manual Microscopic Reviewed; Nitrate Urine Negative (Negative); Non Pathogenic Casts 0-2; Specific Grav Ur 1.014 (1.001-1.035)
[2025-01-09] MEDS: KETOROLAC 15 MG/ML VIAL (*BKC) IV PUSH (17:53)
--- NOTE | 2025-01-09 21:49 | ED_ITS ---
HPI - Abdominal Pain General Chief Complaint: Abdominal Pain Stated Complaint: R flank pain Time Seen by Provider: 01/09/25 16:07 History of Present Illness HPI narrative: Patient presents here with pain to her R side; associated with some nausea. She has been told she has kidney stones before and ovarian cyst. Ongoing for the past day. No vaginal discharge, she is monogamous with partner and not concerned about STDs Related Data Home Medications ?Medication ?Instructions ?Recorded ?Confirmed ?Last Taken ?Type escitalopram oxalate 20 mg tablet 20 mg PO HS 08/24/22 09/20/24 Unknown History (Lexapro) Allergies Allergy/AdvReac Type Severity Reaction Status Date / Time No Known Allergies Allergy Verified 09/20/24 14:53 Review of Systems 2 Review of Systems: All systems reviewed & are unremarkable except as noted in HPI and below PMFSH Past Medical History Medical History Abdominal pain Pyelonephritis False labor Surgical History Surgical History No pertinent past surgical history Family History Family History Mother Hx of blood clots Hypertension Grandparent Pancreatic cancer Diabetes mellitus Grandparent Breast cancer Sibling Hypothyroid Other Diabetes mellitus Social History Social History Smoking status: Never smoker Second hand tobacco smoke exposure: Yes Additional smoking assessment comments: parents smoked in the home as a child/teen Alcohol intake: never Substance use: never Substance use type: does not use Do You Feel Safe in your Home?: Yes Lack of Transportation: No Lack of Food: Never True Current Housing: I Have Housing Concerned About Future Housing: No Difficulty Paying Gas/Electric Bills: No Difficulty Paying for Meds: No Currently Unemployed: No Education: High School Diploma/GED Difficulty w/ Childcare or Family Care: No Living arrangements: with family Occupation/Education: other Additional occupation/education comments: HM Gender identity (if verbalized by the patient): Female Sexual Orientation (if Verbalized by the Patient): Straight or Heterosexual Spiritual care concerns: No Exam 2 Narrative: EXAMINATION OF ORGAN SYSTEMS/BODY AREAS: Constitutional: Vital signs per nursing GENERAL:[No acute distress, non-toxic appearing.] HEAD: Normal with no signs of head trauma. EYES: EOMI, conjunctiva normal ENT: Hearing grossly intact LUNGS: Nonlabored breathing. HEART: [Regular rate and rhythm] ABD: [Soft], [nontender to palpation] EXT: Normal range of motion SKIN: [No rashes or lesions.] NEURO: [Alert and oriented x 3. No gross focal sensory or strength deficits.] PSYCH: Normal affect Course Vital Signs Vital signs: Vital Signs Temperature 98.1 F 01/09/25 15:05 Pulse Rate 67 01/09/25 15:05 Respiratory Rate 16 01/09/25 15:05 Blood Pressure 130/80 01/09/25 15:05 Pulse Oximetry 100 01/09/25 15:05 Oxygen Delivery Room Air 01/09/25 15:05 Temperature 98.1 F 01/09/25 15:58 Pulse Rate 73 01/09/25 15:58 Respiratory Rate 12 01/09/25 15:58 Blood Pressure 123/90 01/09/25 15:58 Pulse Oximetry 100 01/09/25 15:58 Oxygen Delivery Room Air 01/09/25 15:58 MDM - Abdominal Pain MDM Narrative Medical decision making narrative: Electronic medical record was reviewed. Patient presented to the ED with complaint of right lower quadrant/flank pain for the past day. Vitals [were within acceptable limits]. Physical exam revealed soft abdomen without tenderness. Based on the patient's history and physical exam, my differential includes but is not limited to kidney stone, UTI, appendicitis, ovarian cyst. Very low concern for torsion without significant pain and well appearing patient here, so concern is his head is without at lower quadrant tenderness. [IV access was established by nursing staff. Patient was given Toradol for pain]. CBC, BMP, lipase, LFTs, bilirubin and alk phos were obtained. Labs were pertinent for no WBCs or blood in urine. [Decision was made to obtain a CT- abdomen to evaluate for acute abdominal process. CT-abdomen per radiology interpretation does not show any stones, appendicitis, does show ovarian cyst.] With shared decision making, we did proceed with transvaginal ultrasound for the cyst, though we did discuss very unlikely torsion. Ultrasound here obtained, shows good blood flow. On reevaluation, the patient states that they are feeling much better. There were no witnessed episodes of vomiting in the emergency department. They are not complaining of any new abdominal pain. Repeat examination did not show any significant guarding or rebound. No new tenderness. At this time I do not feel there is any further emergent treatment to be provided. The patient was given strict return precautions, if they are to develop any worsening abdominal pain, vomiting, or blood in the vomit they are to return to the emergency department immediately. Patient verbally acknowledges understanding these directions. [The patient was informed of the above diagnostic test findings.] No further workup is necessary at this time. They will be discharged home [with prescriptions]. They were advised to follow-up with OBGYN in 2 days. The patient feels that this is appropriate medical decision making and verbalizes an understanding of the discharge instructions. Lab Data 01/09/25 16:06 01/09/25 16:06 Labs: Lab Results 01/09/25 01/09/25 Range/Units 16:06 16:08 WBC 9.0 (4.5-10.0) K/mm3 RBC 4.40 (4.2-5.4) M/mm3 Hgb 13.8 (12.0-15.0) g/dL Hct 41.4 (37.0-47.0) % MCV 94.1 (80-100) fl MCH 31.4 (26-34) pg MCHC 33.3 (32-36) g/dl RDW 12.9 (11.5-14.5) % Plt Count 286 (150-375) k/mm3 MPV 11.0 H (7.4-10.4) fl Immature Gran % (Auto) 0.3 (0-0.5) % Neut % (Auto) 60.5 (45.5-73.1) % Lymph % (Auto) 30.1 (18.3-44.2) % [place] % (Auto) 5.7 (2.6-8.5) % Eos % (Auto) 2.8 (0-4.4) % Baso % (Auto) 0.6 (0.2-1.2) % Lymph # (Auto) 2.71 (0.9-3.2) K/mm3 [place] # (Auto) 0.5 (0.1-0.6) K/mm3 Eos # (Auto) 0.3 (0-0.3) K/mm3 Baso # (Auto) 0.1 (0.0-0.1) K/mm3 Abs Immat Gran (auto) 0.03 (0.00-0.031) K/mm3 Absolute Neuts (auto) 5.4 (1.3-6.7) K/mm3 Absolute Nucleated RBC 0.000 (0.0-0.012) K/mm3 Nucleated RBC % 0.0 (0.0-0.2) % Sodium 133 L (137-145) mmol/L Potassium 3.8 (3.4-5.0) mmol/L Chloride 101 (98-107) mmol/L Carbon Dioxide 26 (22-30) mmol/L Anion Gap 6 (4-12) mmol/L BUN 9 (7-17) mg/dL Creatinine 0.80 (0.7-1.0) mg/dL Estim Creat Clear Calc 100 ml/min Estimated GFR > 60 (59 - ) Glucose 87 (65-110) mg/dL Calcium 9.6 (8.4-10.2) mg/dL Total Bilirubin 0.6 (0.2-1.3) mg/dL AST 30 (14-36) U/L ALT 26 (6-35) U/L Alkaline Phosphatase 82 (38-126) U/L Total Protein 8.1 (6.3-8.2) g/dL Albumin 4.5 (3.5-5.1) g/dL Urine Color Yellow (Yellow) Urine Appearance Clear (Clear) Urine pH 6.0 (5.0-9.0) Ur Specific Peck 1.014 (1.001-1.035) Urine Protein Negative (Negative) mg/dL Urine Glucose (UA) Negative (Negative) mg/dL Urine Ketones Negative (Negative) mg/dL Ur Blood (Man) Negative (Negative) Urine Nitrate Negative (Negative) Urine Bilirubin Negative (Negative) Urine Urobilinogen 0.2 (<2.0) mg/dL Add Ur Microanalysis Reviewed Leukocyte Esterase Rfl 1+ H (Negative) BALAJI/UL Urine RBC 0-2 (0-2) /hpf Urine WBC 0-5 (0-3) /hpf Ur Squamous Epith Cells None seen (Few) /hpf Urine Bacteria 1+ H /hpf Urine Casts 0-2 POC Urine HCG, Qual Negative (Negative) Imaging Data Radiologist's impression: ITS Impressions Abdomen/Pelvis CT 01/09/25 17:38 IMPRESSION: 1. No acute intra-abdominal/pelvic process. Specifically the appendix, kidneys and ureters are normal. 2. 1.9 cm right ovarian cyst/follicle the smaller 1.3 similar peripherally enhancing likely right ovarian corpus luteum cyst. Discharge Plan Discharge Clinical Impression: Ovarian cyst Patient Disposition: Home Condition: Stable Instructions: Ovarian Cyst (ED) Additional Instructions: Please follow-up with your OBGYN or PCP, you can take ibuprofen at home for pain or use heat pack, please come back to the hospital if your pain gets worse. Patient Language: Swedish Prescriptions: No Action ondansetron 4 mg tablet,disintegrating 4 mg PO Q8H PRN (Reason: nausea and vomiting) Qty: 14 0RF escitalopram oxalate [Lexapro] 20 mg tablet 20 mg PO HS Follow-up/Referrals: Sheryl Anne DO [Primary Care Provider] - 2 Days
== END 2025-01-09 21:00 | disposition home or self-care (01) ==
PROVIDERS: Emergency Medicine; Emergency Provider Emergency Medicine; PCP Family Medicine
DX: N83.201 Unspecified ovarian cyst, right side (principal); Z87.442 Personal history of urinary calculi; Z77.22 Contact with and (suspected) exposure to environmental tobacco smoke (acute) (chronic)
CPT/HCPCS: 36415; 74177; 76856; 80053; 81001; 81025; 85025; 87086; 96374; 99284; J1885; Q9967

== ENCOUNTER 2025-06-02 12:55 | Emergency (ER) | payer OTHER, SELFPAY ==
[2025-06-02] VITALS (7 sets, daily range): BP systolic 118–141; BP diastolic 82–94; PULSE 94–98; RESP 12–21; TEMP 36.9–37; O2SAT 99–100
--- NOTE | ~2025-06-02 | XR_ITS ---
XR chest 1V portable 06/02/2025 14:53 Indication: Chest pain Procedure: AP portable chest Comparison: No prior studies for comparison. Findings: Heart size normal. No focal air space disease, pulmonary edema, pleural effusion or suspected pneumothorax. No acute osseous abnormality. Impression: 1: No acute cardiopulmonary disease. Reviewed, dictated and finalized at location O. ICE DESK TECHNICIAN Impression: 1: No acute cardiopulmonary disease.
--- NOTE | 2025-06-02 12:57 | ECG_ITS ---
Test Date: 2025-06-02 13:02:56 Measurements Intervals [place] Rate: 93 P: 49 ID: [id number] QRS: 5 QRSD: 90 T: 3 QT: 324 QTc: 404 Interpretive Statements SINUS RHYTHM NONSPECIFIC T-WAVE ABNORMALITY- ANT/INF LEADS BORDERLINE ECG No previous ECG available for comparison Electronically Signed On 06-02-2025 13:19:33 PROCUREMENT TECHNICIAN by Pedrito Zapata D.O.
[2025-06-02 13:27] LABS: Hematocrit 40.1 % (37.0-47.0); Hemoglobin 13.4 g/dL (12.0-15.0); Immature Granulocyte Percent A 0.5 % (0-0.5); Lymphocytes Absolute Auto 1.67 K/mm3 (0.9-3.2); Mean Corpuscular HGB Conc 33.4 g/dl (32-36); Mean Corpuscular Hemoglobin 31.4 pg (26-34); Mean Corpuscular Volume 93.9 fl (80-100); Nucleated Red Blood Cells Absolute Auto 0.000 K/mm3 (0.0-0.012); Nucleated Red Blood Cells Perc 0.0 % (0.0-0.2); Platelet Count Result 228 k/mm3 (150-375); Red Blood Count 4.27 M/mm3 (4.2-5.4); White Blood Count 10.8 K/mm3 (4.5-10.0)
[2025-06-02 13:46] LABS: INR 0.9; Prothrombin Time 12.4 Seconds (11.1-14.7)
[2025-06-02 13:47] LABS: Partial Thromboplastin Time 28.3 Seconds (22.3-36.8)
[2025-06-02 13:54] LABS: Alanine Aminotransferase 46 U/L (6-35); Albumin Level 4.6 g/dL (3.5-5.1); Alkaline Phosphatase 89 U/L (38-126); Anion Gap 9 mmol/L (4-12); Aspartate Amino Transferase 58 U/L (14-36); Bilirubin,Total 0.6 mg/dL (0.2-1.3); Blood Urea Nitrogen 12 mg/dL (7-17); Calcium 9.7 mg/dL (8.4-10.2); Carbon Dioxide 25 mmol/L (22-30); Chloride 103 mmol/L (98-107); Estimated CRCL calculation 125 ml/min; Estimated Glomerular Filt Rate > 60; Glucose 94 mg/dL (65-110); Lipase 24 U/L (23-300); Potassium 3.9 mmol/L (3.4-5.0); Sodium 137 mmol/L (137-145); Total Protein 8.1 g/dL (6.3-8.2)
[2025-06-02 14:01] LABS: Troponin I < 0.012 ng/mL (0.000-0.034)
[2025-06-02] MEDS: KETOROLAC 30 MG/ML VIAL (*BKC) IV PUSH (14:25)
[2025-06-02] MEDS: ONDANSETRON INJ 4 MG/2 ML VIAL IV PUSH (14:25)
--- NOTE | 2025-06-02 14:25 | ED_ITS ---
HPI - Chest Pain General Chief Complaint: Chest Pain Stated Complaint: CP, SOB, covid positive at [facility] Time Seen by Provider: 06/02/25 14:11 Source: patient Mode of arrival: ambulatory Limitations: no limitations History of Present Illness HPI narrative: This is a 25-year-old female with no significant past medical history who presents to the ED for chest pain. Patient states for the past couple days, she has been having flu-like symptoms including cough, congestion, subjective fevers. She went to urgent care this morning and was diagnosed with COVID. However, she has had continued body aches despite the Mucinex that she was taking prompting her to come to the ED for further evaluation. Related Data Home Medications ?Medication ?Instructions ?Recorded ?Confirmed ?Last Taken ?Type escitalopram oxalate 20 mg tablet 20 mg PO HS 08/24/22 03/24/25 Unknown History (Lexapro) Allergies Allergy/AdvReac Type Severity Reaction Status Date / Time No Known Allergies Allergy Verified 06/02/25 12:56 Review of Systems 2 Review of Systems: All systems reviewed & are unremarkable except as noted in HPI and below PMFSH Past Medical History Medical History Abdominal pain Pyelonephritis False labor Surgical History Surgical History Hx of lithotripsy Family History Family History Mother Hx of blood clots Hypertension Breast cancer Grandparent Pancreatic cancer Diabetes mellitus Grandparent Breast cancer Sibling Hypothyroid Other Diabetes mellitus Social History Social History Smoking status: Never smoker Second hand tobacco smoke exposure: Yes Additional smoking assessment comments: parents smoked in the home as a child/teen Alcohol intake: never Substance use: never Substance use type: does not use Lack of Transportation: No Lack of Food: Never True Current Housing: I Have Housing Concerned About Future Housing: No Difficulty Paying Gas/Electric Bills: No Difficulty Paying for Meds: No Currently Unemployed: No Education: High School Diploma/GED Difficulty w/ Childcare or Family Care: No Living arrangements: with family Occupation/Education: other Additional occupation/education comments: HM Gender identity (if verbalized by the patient): Female Sexual Orientation (if Verbalized by the Patient): Straight or Heterosexual Spiritual care concerns: No Exam 2 Narrative: APPEARANCE: No acute distress, ill-appearing, resting in bed EYES: EOMI HEENT: Normocephalic, atraumatic, OMM RESPIRATORY: No respiratory distress Clear to auscultation bilaterally with no rhonchi wheezing or rales. CARDIOVASCULAR: Regular rate and rhythm without murmurs rubs or gallops. Tenderness palpation to the lower sternum without crepitus ABDOMINAL: Soft, nontender, nondistended, no rebound or guarding MUSCULOSKELETAl: Moves all extremities. No clubbing, cyanosis or edema. NEURO: Awake and alert. Following commands, speech normal, no focal deficits SKIN:: Warm, dry. No rashes lesions or abrasions PSYCHIATRIC: Normal affect/mood, Course Vital Signs Vital signs: Vital Signs Temperature 98.4 F 06/02/25 12:59 Pulse Rate 97 06/02/25 12:59 Respiratory Rate 21 H 06/02/25 12:59 Blood Pressure 141/94 H 06/02/25 12:59 Pulse Oximetry 100 06/02/25 12:59 Oxygen Delivery Room Air 06/02/25 12:59 Temperature 98.6 F 06/02/25 15:14 Pulse Rate 98 06/02/25 14:17 Respiratory Rate 16 06/02/25 14:17 Blood Pressure 124/84 06/02/25 14:16 Pulse Oximetry 100 06/02/25 14:17 Oxygen Delivery Room Air 06/02/25 14:13 [facility] MDM Narrative Medical decision making narrative: 25-year-old female Presenting for chest pain. On initial evaluation patient was in no acute distress afebrile, hemodynamic stable. Differentials include but are not limited to: ACS, PE, PNA, bronchitis, costochondritis, pleurisy, viral syndrome, GERD Notable exam findings: Tenderness palpation to the lower sternum I personally reviewed the patient's lab result. Notable lab findings: Mild leukocytosis at 10.8. Mild transaminitis with AST 58 and ALT 46 which she has had previously. Troponin negative. Lipase negative. I personally reviewed the patient's images and interpret as follows: Chest x- ray: Normal cardiac silhouette, no consolidations, no pleural effusions, no pulmonary vascular congestion I personally reviewed the patient's EKGs: Normal sinus rhythm, normal axis, normal intervals, no acute ST or T-wave changes Patient's EKGs and labs are without significant high risk changes. Cardiac risk factors reviewed. Patient is felt likely low risk for ACS and reasonable for further risk stratification testing as an outpatient. Pain was not sudden or maximal in onset without tearing or ripping quality. No other signs of symptoms suggest aortic dissection. A low-risk Wells criteria is noted, PE is felt to be unlikely. No pneumonia seen on evaluation today. Patient is felt to be a reasonable candidate for continued evaluation as an outpatient. Symptoms are felt to be related to her COVID. Differential Diagnosis Differential Diagnosis: ACS, PE, PNA, bronchitis, costochondritis, pleurisy, viral syndrome, GERD Lab Data 06/02/25 13:18 06/02/25 13:18 Labs: Lab Results 06/02/25 06/02/25 Range/Units 13:18 14:18 WBC 10.8 H (4.5-10.0) K/mm3 RBC 4.27 (4.2-5.4) M/mm3 Hgb 13.4 (12.0-15.0) g/dL Hct 40.1 (37.0-47.0) % MCV 93.9 (80-100) fl MCH 31.4 (26-34) pg MCHC 33.4 (32-36) g/dl RDW 12.1 (11.5-14.5) % Plt Count 228 (150-375) k/mm3 MPV 10.6 H (7.4-10.4) fl Immature Gran % (Auto) 0.5 (0-0.5) % Neut % (Auto) 76.5 H (45.5-73.1) % Lymph % (Auto) 15.4 L (18.3-44.2) % [place] % (Auto) 5.6 (2.6-8.5) % Eos % (Auto) 1.6 (0-4.4) % Baso % (Auto) 0.4 (0.2-1.2) % Lymph # (Auto) 1.67 (0.9-3.2) K/mm3 [place] # (Auto) 0.6 (0.1-0.6) K/mm3 Eos # (Auto) 0.2 (0-0.3) K/mm3 Baso # (Auto) 0.0 (0.0-0.1) K/mm3 Abs Immat Gran (auto) 0.05 H (0.00-0.031) K/mm3 Absolute Neuts (auto) 8.3 H (1.3-6.7) K/mm3 Absolute Nucleated RBC 0.000 (0.0-0.012) K/mm3 Nucleated RBC % 0.0 (0.0-0.2) % PT 12.4 (11.1-14.7) Seconds INR 0.9 APTT 28.3 (22.3-36.8) Seconds Sodium 137 (137-145) mmol/L Potassium 3.9 (3.4-5.0) mmol/L Chloride 103 (98-107) mmol/L Carbon Dioxide 25 (22-30) mmol/L Anion Gap 9 (4-12) mmol/L BUN 12 (7-17) mg/dL Creatinine 0.73 (0.7-1.0) mg/dL Estim Creat Clear Calc 125 ml/min Estimated GFR > 60 (59 - ) Glucose 94 (65-110) mg/dL POC Capillary Glucose 92 (65-105) mg/dl Calcium 9.7 (8.4-10.2) mg/dL Total Bilirubin 0.6 (0.2-1.3) mg/dL AST 58 H (14-36) U/L ALT 46 H (6-35) U/L Alkaline Phosphatase 89 (38-126) U/L Troponin I < 0.012 (0.000-0.034) ng/mL Total Protein 8.1 (6.3-8.2) g/dL Albumin 4.6 (3.5-5.1) g/dL Lipase 24 (23-300) U/L Imaging Data Radiologist's impression: ITS Impressions Chest X-Ray 06/02/25 15:06 Impression: 1: No acute cardiopulmonary disease. Discharge Plan Discharge Clinical Impression: Acute costochondritis, COVID-19 Patient Disposition: Home Condition: Stable Instructions: Antibiotic Form, Costochondritis (ED), COVID-19 (Coronavirus Disease 2019) (ED) Additional Instructions: Your chest pain was likely related to COVID and coughing. You may take Tylenol and ibuprofen the pain. Follow-up with your PCP in the next week for re- evaluation. Return to the ED for any new or worse symptoms. For pain, discomfort or temperature greater than or equal to 100.8 ?F please alternate the following 2 medications as needed. First medication- acetaminophen/Tylenol- 1000mg every 6-8 hours as needed for above indications. Second medication- ibuprofen/Motrin-600mg every 6-8 hours as needed for above indication. Patient Language: Chinese Prescriptions: New ondansetron 4 mg tablet,disintegrating 4 mg PO Q8H PRN (Reason: nausea and vomiting) Qty: 12 0RF No Action ondansetron 4 mg tablet,disintegrating 4 mg PO Q8H PRN (Reason: nausea and vomiting) Qty: 14 0RF escitalopram oxalate [Lexapro] 20 mg tablet 20 mg PO HS Follow-up/Referrals: Chelo Weiss APRN [Primary Care Provider, Internal Medicine]
--- OUTSIDE RECORDS SUMMARY | 2025-06-02 14:27 | XMS_ITS | Patient Health Record ---
Author Organization [facility] Address [address] [place] [address] Phone [phone] Care Team Providers Care Lens Edge Grinder Machine Name Role Phone Dave Wilkerson Primary Care Provider Reason For Referral No Information Social History Sex Observation Social History Observation Description Sex Observation Female Plan Of Treatment No Information Insurance Providers Payer Name Payer Address Payer Phone Subscriber Number Group Number Insured Name Patient Relationship to Insured Coverage Start Date Coverage End Date [facility] [address] [place] [address] [id number] Lissette Barrera Self - patient is the insured 0
--- OUTSIDE RECORDS SUMMARY | 2025-06-02 14:27 | XMS_ITS | Clinical Summary ---
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
--- OUTSIDE RECORDS SUMMARY | 2025-06-02 14:27 | XMS_ITS | Clinical Summary ---
Author Organization [facility] Address [facility] [place] [address] Care Team Providers Care Curling Machine Operator Name Role Phone None, Provider Primary Care [...] 3-dose series) 2021 COVID-19 Vaccine ( - 2024-2 6 season) 2025 Influenza Adult (#1) 2025 Hepatitis A Vaccines Aged Out No long er eligible based on patient's age to complete this topic Meningococcal Vaccine Aged Out No gurinder justin [...] patient's age to complete this topic Insurance Elliott SANTOS [address] Care Teams Curling Machine Operator Relationship Specialty Start Date End Date None, Provider, PCP - General UNKNOWN PHYSICIAN SPECIALTY 12/10/23
--- OUTSIDE RECORDS SUMMARY | 2025-06-02 16:11 | XMS_ITS | Clinical Summary ---
Author Organization [facility] Address [facility] [place] [address] Care Team Providers Care Dental Services Director Name Role Phone None, Provider Primary Care [...] to complete this topic Insurance Elliott SANTOS [address] Care Teams Dental Services Director Relationship Specialty Start Date End Date None, Provider, PCP - General UNKNOWN PHYSICIAN SPECIALTY 12/10/23
--- OUTSIDE RECORDS SUMMARY | 2025-06-02 16:11 | XMS_ITS | Clinical Summary ---
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
== END 2025-06-02 15:14 | disposition home or self-care (01) ==
PROVIDERS: Emergency Medicine; Emergency Provider Student in an Organized Health Care Education/Training Program; PCP Nurse Practitioner
DX: U07.1 COVID-19 (principal); M94.0 Chondrocostal junction syndrome [Tietze]
CPT/HCPCS: 36415; 71045; 80053; 82948; 83690; 84484; 85025; 85610; 85730; 93005; 96374; 96375; 99284; J1885; J2405